=== PATIENT | female | born 1950 | race Caucasian/White ===

== ENCOUNTER → 2016-05-11 | Outpatient (CLI) | payer MEDICARE, OTHER, MEDICAID, SELFPAY | PROVIDERS: Family Provider Family Medicine; PCP Family Medicine; Visit Provider Family Medicine | DX: E11.9 Type 2 diabetes mellitus without complications (principal); E78.2 Mixed hyperlipidemia; I10 Essential (primary) hypertension | CPT/HCPCS: 36415; 83036 ==

== ENCOUNTER → 2019-12-06 08:38 | Outpatient (CLI) | payer MEDICARE, MEDICAID, SELFPAY ==
--- NOTE | 2019-12-06 08:45 | DI.MG.S_ITS ---
BILATERAL DIGITAL DIAGNOSTIC MAMMOGRAM 3D/2D: 12/06/2019 CLINICAL: Left breast pain. Comparison is made to exams dated: 08/09/2011 mammogram, 07/24/2009 mammogram, and 11/08/2005 mammogram - [facility]. There are scattered fibroglandular elements in both breasts. No significant masses, calcifications, or other findings are seen in either breast. Right breast scar. Right breast vascular calcifications. IMPRESSION: INCOMPLETE: NEEDS ADDITIONAL IMAGING EVALUATION No mammographic evidence of malignancy. A targeted ultrasound of the left medial breast at the site of pain is recommended. This exam was interpreted at Station ID: [id number]. NOTE: For mammograms, a report in lay terms will be sent to the patient. Approximately 15% of breast malignancies will not be visualized mammographically. In the management of a palpable breast mass, a negative mammogram must not discourage biopsy of a clinically suspicious lesion. Electronically Signed By: Anderson Hall M.D. slc/:12/06/2019 10:38:15 ACR BI-RADS Category 0: Incomplete [id number]
--- NOTE | 2019-12-06 08:45 | DI.US.S_ITS ---
LIMITED ULTRASOUND OF LEFT BREAST: 12/06/2019 CLINICAL: Focal left breast pain now resolved. Comparison is made to exams dated: 12/06/2019 mammogram, 08/09/2011 mammogram, 07/24/2009 mammogram, and 11/08/2005 mammogram - [facility]. Color flow and real-time ultrasound of the left breast inner aspect were performed. Bennett scale images of the real-time examination were reviewed. No significant abnormalities were seen sonographically in the left breast in the region of pain. IMPRESSION: NEGATIVE There is no sonographic evidence of malignancy in the region of pain. A 1 year screening mammogram is recommended. This exam was interpreted at Station ID: [id number]. Electronically Signed By: Anderson Hall M.D. slc/:12/06/2019 10:49:07 letter sent: Normal Exam Ultrasound BI-RADS: 1 Negative
== END ==
PROVIDERS: Family Provider Family Medicine; PCP Family Medicine; Referring Provider Family Medicine; Visit Provider Registered Nurse
DX: R92.8 Other abnormal and inconclusive findings on diagnostic imaging of breast (principal); N64.4 Mastodynia
CPT/HCPCS: 76642; 77066; G0279

== ENCOUNTER → 2020-09-28 08:41 | Outpatient (CLI) | payer MEDICARE, MEDICAID, SELFPAY ==
--- NOTE | 2020-09-28 | DI.MG.S_ITS ---
BILATERAL DIGITAL DIAGNOSTIC MAMMOGRAM 3D/2D: 09/28/2020 CLINICAL: Right breast pain. Comparison is made to exams dated: 12/06/2019 mammogram, 08/09/2011 mammogram, and 07/24/2009 mammogram - [facility]. There are scattered fibroglandular elements in both breasts. No significant masses, calcifications, or other findings are seen in either breast. Specifically, no finding to explain the patient's pain or tender 1:00 palpable abnormality. Mammograms are otherwise stable. IMPRESSION: INCOMPLETE: NEEDS ADDITIONAL IMAGING EVALUATION There is no abnormality seen in the right breast to correspond with the mass and tenderness at 1 o'clock. There is no abnormality seen in the right breast to correspond with the pain and tenderness in the upper outer quadrant. Ultrasound is recommended for full evaluation of these areas. This was performed immediately following this exam. This exam was interpreted at Station ID: [id number]. NOTE: For mammograms, a report in lay terms will be sent to the patient. Approximately 15% of breast malignancies will not be visualized mammographically. In the management of a palpable breast mass, a negative mammogram must not discourage biopsy of a clinically suspicious lesion. Electronically Signed By: Josie espinoza/:09/28/2020 10:05:37 ACR BI-RADS Category 0: Incomplete [id number]
--- NOTE | 2020-09-28 08:42 | DI.US.S_ITS ---
LIMITED ULTRASOUND OF RIGHT BREAST: 09/28/2020 CLINICAL: Right breast pain. Comparison is made to exams dated: 09/28/2020 mammogram, 12/06/2019 mammogram, 08/09/2011 mammogram, 08/09/2011 mammogram, and 07/24/2009 mammogram - [facility]. Real-time ultrasound of the right breast upper outer quadrant was performed. Bennett scale images of the real-time examination were reviewed. No significant abnormalities were seen sonographically in the right breast. Specifically, no finding to explain the patient's nipple or upper outer quadrant pain. No sonographic mass in the area of palpable abnormality at 1:00. IMPRESSION: NEGATIVE There is no sonographic evidence of malignancy. No findings to explain patient's clinical symptoms. Return to annual mammogram screening schedule is recommended. Findings and recommendations were conveyed to the patient at time of exam. This exam was interpreted at Station ID: [id number]. Electronically Signed By: Josie espinoza/:09/28/2020 10:32:54 letter sent: Normal Exam Ultrasound BI-RADS: 1 Negative
== END ==
PROVIDERS: Family Provider Family Medicine; PCP Family Medicine; Referring Provider Registered Nurse Diabetes Educator; Visit Provider Registered Nurse Diabetes Educator
DX: N64.4 Mastodynia (principal); R92.8 Other abnormal and inconclusive findings on diagnostic imaging of breast
CPT/HCPCS: 76642; 77066; G0279

== ENCOUNTER → 2022-01-20 14:26 | Outpatient (ROUT) | payer MEDICARE, MEDICAID, SELFPAY ==
[2022-01-21 15:36] LABS: Candida species Positive (Negative); Gardnerella vaginalis Positive (Negative); Trichomoas vaginalis Negative (Negative)
== END ==
PROVIDERS: Family Provider Family Medicine; PCP Family Medicine; Visit Provider Physician Assistant Medical
DX: N76.0 Acute vaginitis (principal)
CPT/HCPCS: 87480; 87510; 87660

== ENCOUNTER → 2022-04-05 11:01 | Outpatient (CLI) | payer MEDICARE, MEDICAID, SELFPAY ==
[2022-04-05 11:54] LABS: Hemoglobin A1C% w Est Avg Glu 12.4 % (4.0-6.0)
[2022-04-05 12:05] LABS: Alanine Aminotransferase 26 IU/L (<35); Albumin 4.2 g/dL (3.5-5.0); Albumin Globulin Ratio 1.1 (1.0-2.8); Alkaline Phosphatase 141 U/L (38-126); Aspartate Aminotransferase 24 IU/L (14-36); BUN Creatinine Ratio 22.2 (6-22); Bilirubin Total 0.6 mg/dL (0.2-1.3); Blood Urea Nitrogen 16 mg/dL (7-17); Carbon Dioxide 23 mmol/L (22-32); Chloride 102 mmol/L (98-107); Cholesterol 275 mg/dL (140-199); Estimated Glomerular Filt Rate > 60 mL/min (>60); Globulin 3.7 g/dL (1.7-4.1); Glucose 307 mg/dL (80-110); HDL Cholesterol 51 mg/dL (40-60); HEMOLYSIS 26 (0-50); LDL Cholesterol Calculated 198 mg/dL (<100); Sodium 137 mmol/L (137-145); Total Protein 7.9 g/dL (6.3-8.2); Triglycerides 132 mg/dL (35-150)
== END ==
PROVIDERS: Family Provider Family Medicine; PCP Family Medicine; Referring Provider Family Medicine; Visit Provider Family Medicine
DX: E11.9 Type 2 diabetes mellitus without complications (principal)
CPT/HCPCS: 36415; 80053; 80061; 83036

== ENCOUNTER → 2022-08-16 14:16 | Outpatient (CLI) | payer MEDICARE, MEDICAID, SELFPAY ==
--- NOTE | 2022-08-16 14:19 | DI.RAD.S_ITS ---
PROCEDURE: XR LUMBAR SPINE 2-3V INDICATIONS: Low back pain TECHNIQUE: 3 views of the lumbar spine were acquired. COMPARISON: None. FINDINGS: Bones: 5 [id number] vertebrae are present. There is normal bony alignment. No vertebral body compression fractures. No suspicious bony lesions. Mild degenerative disc changes noted throughout the lumbar spine. Mild L3-L4, L4-L5 and L5-S1 facet hypertrophy. Soft tissues: Overlying bowel gas pattern is normal. No suspicious soft tissue calcifications. IMPRESSION: 1. Multilevel degenerative disc disease. 2. Multilevel facet arthropathy. 3. No fracture. No acute osseous lesion. If symptoms and/or clinical suspicion for pathology persists, evaluation with MRI should be considered for further assessment. Dictated by: Radha Young MD, PhD on 08/16/2022 at 15:28 Approved by: Radha Young MD, PhD on 08/16/2022 at 15:28
[2022-08-16 15:32] LABS: Alanine Aminotransferase 28 IU/L (<35); Albumin 4.2 g/dL (3.5-5.0); Albumin Globulin Ratio 1.2 (1.0-2.8); Alkaline Phosphatase 126 U/L (38-126); Aspartate Aminotransferase 23 IU/L (14-36); Bilirubin Total 0.6 mg/dL (0.2-1.3); Blood Urea Nitrogen 21 mg/dL (7-17); Calcium 9.2 mg/dL (8.4-10.2); Carbon Dioxide 28 mmol/L (22-32); Chloride 99 mmol/L (98-107); Cholesterol 253 mg/dL (140-199); Estimated Glomerular Filt Rate > 60 mL/min (>60); Globulin 3.4 g/dL (1.7-4.1); Glucose 417 mg/dL (80-110); HDL Cholesterol 49 mg/dL (40-60); HEMOLYSIS 28 (0-50); LDL Cholesterol Calculated 152 mg/dL (<100); Potassium 4.4 mmol/L (3.4-5.1); Sodium 133 mmol/L (137-145); Total Protein 7.6 g/dL (6.3-8.2); Triglycerides 260 mg/dL (35-150)
[2022-08-16 15:58] LABS: Creatinine Urine Random 45.6 mg/dL
[2022-08-16 16:04] LABS: Microalbumin Urine Random < 0.6 mg/dL (0-1.6)
[2022-08-17 07:36] LABS: x Labcorp Estim. Avg Glu (eAG) 289 mg/dL (.); x Labcorp Hemoglobin A1c 11.7 % (4.8-5.6)
== END ==
PROVIDERS: Family Provider Family Medicine; PCP Family Medicine; Referring Provider Family Medicine; Visit Provider Family Medicine
DX: E11.9 Type 2 diabetes mellitus without complications (principal); E78.00 Pure hypercholesterolemia, unspecified; I10 Essential (primary) hypertension; M51.36 Other intervertebral disc degeneration, lumbar region; M47.816 Spondylosis without myelopathy or radiculopathy, lumbar region
CPT/HCPCS: 36415; 72100; 80053; 80061; 82043; 82570; 83036

== ENCOUNTER 2022-08-30 16:26 | Emergency (ER) | payer MEDICARE, MEDICAID, SELFPAY ==
[2022-08-30 16:41] VITALS: BP 175/76; PULSE 88; RESP 17; TEMP 36.6; O2SAT 95; BMI 24.4
--- NOTE | 2022-08-30 19:02 | ED_ITS ---
HPI - Back Pain/Injury <Cindy Lovell PA-C - Last Filed: 08/30/22 20:51> General Chief Complaint: Back Pain/Injury Stated Complaint: sciatic nerve pain increasing Time Seen by Provider: 08/30/22 18:52 History of Present Illness HPI Narrative: 72-year-old female with past medical history chronic lower back pain, hypercholesterolemia, type 2 diabetes, essential hypertension presents to the ED with worsening lower back pain with sciatica. Patient has been seen by ortho for ongoing lower back pain with sciatica, is scheduled to have a MRI soon. Meanwhile, patient states that her lower back pain worsened as of this morning, denies any new trauma or activities that provoked it. Patient states that she is having a hard time standing straight, bearing weight and walking, moving positions. Patient denies numbness, tingling, weakness, saddle paresthesia, urinary hesitancy, urinary incontinence, bowel incontinence. Related Data Previous Rx's Medication Instructions Recorded lancets 33 gauge (BD Ultra Fine #100 ea 09/02/19 Lancets) epinephrine 0.3 mg/0.3 mL 0.3 mg (0.3 mL) IM Q5-15M PRN 12/03/20 injection, auto-injector (EpiPen anaphylaxis #2 ea 2-Jaspreet) Parking Permit... #1 ea 03/22/22 cyclobenzaprine 5 mg tablet 5 mg PO Q8H PRN muscle spasm #30 03/22/22 tabs naproxen 500 mg tablet 500 mg PO BID PRN pain #60 tabs 03/22/22 lisinopril 20 mg tablet 20 mg PO DAILY #90 tabs 04/05/22 metformin 500 mg tablet 1,000 mg PO BIDWMEAL #360 tabs 04/05/22 atorvastatin 80 mg tablet (Lipitor) 80 mg PO BEDTIME #90 tabs 04/06/22 gabapentin 100 mg capsule See Rx Instructions .Route 04/21/22 .COMPLEX #180 caps blood sugar diagnostic (Accu-Chek ##100 05/04/22 Makeda Plus test strips) blood-glucose meter #1 ea 05/17/22 fluconazole 150 mg tablet 150 mg PO Q3D 2 doses #5 tabs 05/25/22 (Diflucan) nystatin-triamcinolone 100,000 1 applic topical BID #30 grams 02/01/23 unit/gram-0.1 % topical ointment empagliflozin 25 mg tablet 25 mg PO DAILY #90 tabs 08/16/22 (Jardiance) pioglitazone 15 mg tablet 15 mg PO DAILY #90 tabs 08/16/22 methylprednisolone 4 mg tablets in 4 mg PO DAILY #21 ea 08/31/22 a dose pack (Medrol (Jaspreet)) cefdinir 300 mg capsule 300 mg PO BID UTI 5 days #10 caps 09/01/22 lidocaine 5 % topical patch 1 patch topical DAILY PRN pain 15 09/01/22 days #15 ea Allergies Allergy/AdvReac Type Severity Reaction Status Date / Time bee venom protein (honey bee) Allergy Severe SOB and Verified 08/30/22 16:45 swelling codeine [CODEINE] Allergy Intermediate NAUSEA Verified 08/30/22 16:45 Sulfa (Sulfonamide Allergy Unknown PATIENT Verified 08/30/22 16:45 Antibiotics) CAN'T [SULFA (SULFONAMIDE REMEMBER ANTIBIOTICS)] Review of Systems <Cindy Lovell PA-C - Last Filed: 08/30/22 20:51> Review of Systems ROS Unobtainable: All systems reviewed & are unremarkable except as noted in HPI and below Constitutional Constitutional: Denies chills, Denies fatigue, Denies fever(s), Denies frequent falls, Denies lethargy and Denies weakness Eyes Eyes: Denies change in vision, Denies eye discharge, Denies irritation and Denies loss of vision ENT Ears, Nose, Mouth, and Throat: Denies change in voice, Denies dizziness, Denies neck pain, Denies sore throat and Denies throat swelling Cardiovascular Cardiovascular: Denies chest pain, Denies irregular heart rhythm, Denies lightheadedness, Denies palpitations, Denies dyspnea, Denies dyspnea on exertion and Denies orthopnea Respiratory Respiratory: Denies cough, Denies dyspnea, Denies dyspnea on exertion and Denies wheezing Gastrointestinal Gastrointestinal: Denies abdominal pain, Denies change in bowel habits, Denies diarrhea, Denies nausea and Denies vomiting Genitourinary Genitourinary: Denies hematuria, Denies flank pain, Denies urinary incontinence and Denies urinary urgency Musculoskeletal Musculoskeletal: Reports back pain, Denies muscle weakness, Denies neck pain, Denies numbness, Reports radiating pain into limb and Denies tingling Integumentary/Breasts Skin/Breast: Denies pruritus, Denies erythema, Denies rash and Denies wounds Neurologic Neurologic: Denies behavioral changes, Denies confusion, Denies dizziness, Denies frequent falls, Denies loss of vision, Denies numbness, Denies tingling and Denies weakness Psychiatric Psychiatric: Denies anxiety, Denies behavioral changes, Denies confusion, Denies depression, Denies homicidal ideation and Denies suicidal ideation Endocrine Endocrine: Denies fatigue, Denies flushing and Denies palpitations Hematologic/Lymphatic Hematologic/Lymphatic: Denies easy bruising Allergic/Immunologic Allergic/Immunologic: Denies urticaria, Denies throat swelling and Denies wheezing Patient History <Cindy Lovell PA-C - Last Filed: 08/30/22 20:51> Medical History Actinic keratosis Breast cancer screening Breast pain, left Chronic lower back pain Essential hypertension Hypercholesterolemia MCL sprain of right knee Seborrheic keratoses Skin tags, multiple acquired Type 2 diabetes mellitus Social History Smoking Status: Former smoker Smoking Status: Former smoker alcohol intake frequency: other Substance Use Type: marijuana Exam <Cindy Lovell PA-C - Last Filed: 08/30/22 20:51> Narrative Exam Narrative: Const General:?cooperative, healthy appearing and comfortable [facility] Head:?normal to inspection Ears:?hearing grossly normal bilaterally Nose:?external nose normal Face and sinus:?normal facial exam and sinuses nontender Mouth:?oral mucosae normal Throat:?posterior oropharynx normal Eyes General:?appearance normal, both eyes and all related structures Neck Neck:?normal visual inspection and no lymphadenopathy noted Resp Effort & Inspection:?normal respiratory effort Auscultation:?clear to auscultation bilaterally Cardio Rate:?regular rate Rhythm:?regular rhythm Musculoskeletal There is no midline tenderness to palpation. No paraspinal tenderness to palpation. Strength and sensation is intact. Range of motion severely limited by pain. Neuro General:?patient alert, patient awake and patient oriented x3 Initial Vital Signs Initial Vital Signs: Vital Signs Temperature 98 F 08/30/22 16:41 Pulse Rate 88 08/30/22 16:41 Respiratory Rate 17 08/30/22 16:41 Blood Pressure 175/76 H 08/30/22 16:41 Pulse Oximetry 95 08/30/22 16:41 Oxygen Delivery Method Room Air 08/30/22 16:41 <Susie Nino DO - Last Filed: 09/02/22 05:46> Initial Vital Signs Initial Vital Signs: Vital Signs Temperature 98 F 08/30/22 16:41 Pulse Rate 88 08/30/22 16:41 Respiratory Rate 17 08/30/22 16:41 Blood Pressure 175/76 H 08/30/22 16:41 Pulse Oximetry 95 08/30/22 16:41 Oxygen Delivery Method Room Air 08/30/22 16:41 Course <Cindy Lovell PA-C - Last Filed: 08/30/22 20:51> Orders Ordered: Discontinued Medications Cyclobenzaprine HCl (Cyclobenzaprine 10 Mg Tablet) 10 mg PO NOW ONE Stop: 08/30/22 19:12 Last Admin: 08/30/22 19:28 Dose: 10 mg Documented By: SPF Ketorolac Tromethamine (Ketorolac 30 Mg/Ml Vial) 30 mg IM NOW ONE Stop: 08/30/22 19:12 Last Admin: 08/30/22 19:29 Dose: 30 mg Documented By: SPF Lidocaine (Lidocaine Patch 1 Each Adh..Patch) 1 each TOP NOW ONE Stop: 08/30/22 19:12 Last Admin: 08/30/22 19:29 Dose: 1 each Documented By: SPF Morphine Sulfate (Morphine 4 Mg/Ml Inj) 4 mg IM NOW ONE Stop: 08/30/22 20:06 Last Admin: 08/30/22 20:19 Dose: 4 mg Documented By: SPF Vital Signs Vital signs: Vital Signs - 8 hr 08/30/22 16:41 Temperature 98 F Pulse Rate 88 Respiratory Rate 17 Blood Pressure 175/76 H Pulse Oximetry 95 Oxygen Delivery Method Room Air <Susie Nino DO - Last Filed: 09/02/22 05:46> Orders Ordered: Discontinued Medications Cyclobenzaprine HCl (Cyclobenzaprine 10 Mg Tablet) 10 mg PO NOW ONE Stop: 08/30/22 19:12 Last Admin: 08/30/22 19:28 Dose: 10 mg Documented By: SPF Ketorolac Tromethamine (Ketorolac 30 Mg/Ml Vial) 30 mg IM NOW ONE Stop: 08/30/22 19:12 Last Admin: 08/30/22 19:29 Dose: 30 mg Documented By: MENDEZ Lidocaine (Lidocaine Patch 1 Each Adh..Patch) 1 each TOP NOW ONE Stop: 08/30/22 19:12 Last Admin: 08/30/22 19:29 Dose: 1 each Documented By: MENDEZ Morphine Sulfate (Morphine 4 Mg/Ml Inj) 4 mg IM NOW ONE Stop: 08/30/22 20:06 Last Admin: 08/30/22 20:19 Dose: 4 mg Documented By: MENDEZ Vital Signs Vital signs: Vital Signs - 8 hr 08/30/22 16:41 Temperature 98 F Pulse Rate 88 Respiratory Rate 17 Blood Pressure 175/76 H Pulse Oximetry 95 Oxygen Delivery Method Room Air MDM - Back Pain/Injury <Cindy Lovell PA-C - Last Filed: 08/30/22 20:51> MDM Narrative Medical decision making narrative: 72-year-old female with past medical history chronic lower back pain, hypercholesterolemia, type 2 diabetes, essential hypertension presents to the ED with worsening lower back pain with sciatica. Physical exam is consistent with sciatica. Strength and sensation is intact. No red flags on history or exam. Will treat patient for pain control. Will reassess. Patient's symptoms improved with lidocaine patch, Toradol, Flexeril, morphine. Patient's blood pressure was elevated during her ED stay. Patient states that she has not taken her medications today, agrees to go home and take her medications as prescribed. ED return precautions were discussed including any headaches, chest pain, shortness of breath, worsening back pain, numbness, tingling, weakness, urinary difficulties. Patient will follow-up with her exterior interior specialist and PCP tomorrow. Medical records reviewed: Yes Discharge Plan Departure Patient Disposition: Home Clinical Impression: Back pain Instructions: DI for Back Pain With Sciatica Activity Restrictions/Additional Instructions: You were evaluated in the ED today for lower back pain and sciatica. Your symptoms improved somewhat with a lidocaine patch, ketorolac, morphine. You are being given a prescription for Percocet for the next 3 days. Please follow-up with your primary care doctor and ortho specialist as soon as possible. Return to the ED if you experience any numbness, tingling, weakness, urinary difficulties. Prescriptions: No Action epinephrine [EpiPen 2-Jaspreet] 0.3 mg/0.3 mL auto-injector 0.3 mg IM Q5-15M PRN (Reason: anaphylaxis) Qty: 2 0RF Rx Instructions: do not exceed 3 doses per episode atorvastatin [Lipitor] 80 mg tablet 80 mg PO BEDTIME Qty: 90 3RF gabapentin 100 mg capsule See Rx Instructions .ROUTE .COMPLEX Qty: 180 3RF Dose Instruction: TAKE ONE TO TWO CAPSULES BY MOUTH EVERY 8 HOURS NEEDED FOR NERVE PAIN Rx Instructions: TAKE ONE TO TWO CAPSULES BY MOUTH EVERY 8 HOURS NEEDED FOR NERVE PAIN (DME) Accu-Chek Makeda Plus test strp Strip See Rx Instructions .ROUTE .COMPLEX Qty: 100 2RF Dose Instruction: FOR DIABETES TYPE 2; USE TO TEST BLOOD GLUCOSE TWICE DAILY. Rx Instructions: FOR DIABETES TYPE 2; USE TO TEST BLOOD GLUCOSE TWICE DAILY. (DME) blood-glucose meter Kit See Rx Instructions .ROUTE .MEDSUPPLY Qty: 1 0RF Rx Instructions: Use to check blood sugars twice daily- Accu Check Meter metformin 500 mg tablet 1,000 mg PO BIDWMEAL Qty: 360 3RF lisinopril 20 mg tablet 20 mg PO DAILY Qty: 90 3RF Jardiance 25 mg tablet 25 mg PO DAILY Qty: 90 3RF pioglitazone 15 mg tablet 15 mg PO DAILY Qty: 90 3RF (DME) lancets [BD Ultra Fine Lancets] 33 gauge misc See Rx Instructions .ROUTE .MEDSUPPLY Qty: 100 1RF Rx Instructions: USE TO TEST BLOOD GLUCOSE TWICE DAILY naproxen 500 mg tablet 500 mg PO BID PRN (Reason: pain) Qty: 60 2RF cyclobenzaprine 5 mg tablet 5 mg PO Q8H PRN (Reason: muscle spasm) Qty: 30 2RF (DME) Parking Permit... See Rx Instructions .Route .MEDSUPPLY Qty: 1 0RF Rx Instructions: Parking permit for difficulty walking fluconazole [Diflucan] 150 mg tablet 150 mg PO Q3D Qty: 5 0RF Rx Instructions: Take 1 tab today, repeat in 3 days. Repeat in 1 wk, then another week nystatin-triamcinolone 100,000-0.1 unit/gram-% ointment 1 applic topical BID Qty: 30 2RF Rx Instructions: Apply to external genitalia twice a day for 6 weeks methylprednisolone [Medrol (Jaspreet)] 4 mg tablets,dose pack 4 mg PO DAILY Qty: 21 0RF cefdinir 300 mg capsule 300 mg PO BID 5 Days Qty: 10 0RF lidocaine 5 % adhesive patch,medicated 1 patch topical DAILY PRN (Reason: pain) 15 Days Qty: 15 0RF Rx Instructions: leave on most painful area for up to 12 hrs Referrals: Pawan Floyd DO [Primary Care Provider] - Stand Alone Forms: Patient Portal/API <Susie Nino DO - Last Filed: 09/02/22 05:46> Cosign ED Attending Cosignature Attestation: I was immediately available in the department for consultation. Documentation has been reviewed.
[2022-08-30] MEDS: CYCLOBENZAPRINE 10 MG TABLET PO (19:28)
[2022-08-30] MEDS: LIDOCAINE PATCH 1 EACH ADH..PATCH TOP (19:29)
[2022-08-30] MEDS: KETOROLAC 30 MG/ML VIAL IM (19:29)
[2022-08-30] MEDS: MORPHINE 4 MG/ML INJ IM (20:19)
[2022-08-30 20:54] VITALS: BP 210/95; PULSE 75; RESP 16; O2SAT 99
== END 2022-08-30 20:58 | disposition home or self-care (01) ==
PROVIDERS: Emergency Provider Student in an Organized Health Care Education/Training Program; Family Provider Family Medicine; PCP Family Medicine
DX: M54.50 Low back pain, unspecified (principal)
CPT/HCPCS: 96372; 99283; J1885; J2270

== ENCOUNTER 2022-08-31 11:11 | Emergency (ER) | payer MEDICARE, MEDICAID, SELFPAY ==
[2022-08-31 11:15] VITALS: BP 155/82; PULSE 77; O2SAT 99
[2022-08-31 11:16] VITALS: BP 155/82; PULSE 76; RESP 18; TEMP 36.9; O2SAT 100; BMI 24.4
[2022-08-31 11:30] VITALS: PULSE 72; O2SAT 95
[2022-08-31 12:00] VITALS: PULSE 78; O2SAT 97
--- NOTE | 2022-08-31 12:24 | ED_ITS ---
HPI - Back Pain/Injury <Kel Lowe PA-C - Last Filed: 08/31/22 14:59> General Chief Complaint: Back Pain/Injury Stated Complaint: L Sciatica pain Time Seen by Provider: 08/31/22 12:03 Source: patient and EMS History of Present Illness HPI Narrative: This is a 72 year old female presents emergency department due to worsening sciatic pain. Patient denies any changes in her she states that the pain is worse than yesterday. Patient states she is having left-sided back pain radiating down the left lower extremity. 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 She would not taken any medications for the pain risks tried any therapies because ?it was so busy?. Denies any urinary or bowel incontinence, saddle paresthesia, significant weakness, or any other concerning signs or symptoms. Related Data Home Medications Medication Instructions Recorded Confirmed empagliflozin 25 mg tablet 25 mg PO DAILY 09/05/22 09/05/22 (Jardiance) lisinopril 20 mg tablet 20 mg PO DAILY 09/05/22 09/05/22 Previous Rx's Medication Instructions Recorded lancets 33 gauge (BD Ultra Fine #100 ea 09/02/19 Lancets) Parking Permit... #1 ea 03/22/22 metformin 500 mg tablet 1,000 mg PO BIDWMEAL #360 tabs 04/05/22 blood sugar diagnostic (Accu-Chek ##100 05/04/22 Makeda Plus test strips) blood-glucose meter #1 ea 05/17/22 Allergies Allergy/AdvReac Type Severity Reaction Status Date / Time bee venom protein (honey bee) Allergy Severe SOB and Verified 09/05/22 11:09 swelling codeine [CODEINE] Allergy Intermediate NAUSEA Verified 09/05/22 11:09 Sulfa (Sulfonamide Allergy Unknown PATIENT Verified 09/05/22 11:09 Antibiotics) CAN'T [SULFA (SULFONAMIDE REMEMBER ANTIBIOTICS)] Review of Systems <Kel Lowe PA-C - Last Filed: 08/31/22 14:59> Review of Systems Narrative: GENERAL: Denies chills, fatigue, malaise, fever, sweats. HEENT: Denies sinus pain, ear pain, sore throat, difficulty swallowing, dizziness. RESPIRATORY: Denies dyspnea, cough, wheezing, hemoptysis, sputum. CARDIOVASCULAR: Denies chest pain, palpitations, orthopnea, edema, GASTROINTESTINAL: Denies nausea, vomiting, abdominal pain, diarrhea, constipation, melena. : Denies dysuria, frequency, incontinence, hematuria, urinary retention. MUSCULOSKELETAL: Left back and left lower extremity pain, otherwise denies weakness, joint pain, or bony pain SKIN: Denies rash, skin lesions, or other NEUROLOGIC: Denies weakness, headache, numbness, change in speech, confusion, seizures, incoordination. PSYCHIATRIC: No concerning psychosocial issues. 12 point review of systems is negative except for those stated above Patient History <Kel Lowe PA-C - Last Filed: 08/31/22 14:59> Medical History Actinic keratosis Breast cancer screening Breast pain, left Chronic lower back pain Essential hypertension Hypercholesterolemia MCL sprain of right knee Seborrheic keratoses Skin tags, multiple acquired Type 2 diabetes mellitus Social History household members: significant other Smoking Status: Former smoker Smoking Status: Former smoker alcohol intake frequency: other Substance Use Type: marijuana Exam <Kel Lowe PA-C - Last Filed: 08/31/22 14:59> Narrative Exam Narrative: GENERAL: Well-developed patient, in mild distress. HEAD: Atraumatic. Normocephalic. EYES: Pupils equal round and reactive. Extraocular motions intact. No scleral icterus. No injection or drainage. ENT: Nose without bleeding, purulent drainage. Throat without erythema, tonsillar hypertrophy or exudate. Airway patent. NECK: Trachea midline. Non tender CARDIOVASCULAR: Regular rate and rhythm without murmurs, gallops, or rubs. RESPIRATORY: Clear to auscultation. Breath sounds equal bilaterally. No wheezes, rales, or rhonchi. GASTROINTESTINAL: Abdomen soft, non-tender, nondistended. EXTREMITIES: No edema or joint tenderness. BACK: Tenderness to palpation to the left paraspinal lumbar area, NEURO: AOx3. SKIN: No rash or erythema of visible areas Initial Vital Signs Initial Vital Signs: Vital Signs Pulse Rate 77 08/31/22 11:15 Blood Pressure 155/82 H 08/31/22 11:15 Pulse Oximetry 99 08/31/22 11:15 Oxygen Delivery Method Room Air 08/31/22 11:15 <Herman Fierro MD - Last Filed: 09/08/22 03:18> Initial Vital Signs Initial Vital Signs: Vital Signs Pulse Rate 77 08/31/22 11:15 Blood Pressure 155/82 H 08/31/22 11:15 Pulse Oximetry 99 08/31/22 11:15 Oxygen Delivery Method Room Air 08/31/22 11:15 Course <Kel Lowe PA-C - Last Filed: 08/31/22 14:59> Orders Ordered: Discontinued Medications Acetaminophen (Acetaminophen 325 Mg Tablet) 650 mg PO NOW ONE Stop: 08/31/22 12:34 Last Admin: 08/31/22 13:00 Dose: 650 mg Documented By: RADHA Cyclobenzaprine HCl (Cyclobenzaprine 10 Mg Tablet) 10 mg PO NOW ONE Stop: 08/31/22 12:34 Last Admin: 08/31/22 13:00 Dose: 10 mg Documented By: RADHA Vital Signs Vital signs: Vital Signs - 8 hr 08/31/22 11:16 08/31/22 11:15 08/31/22 11:15 Temperature 98.5 F Pulse Rate 76 77 Respiratory Rate 18 Blood Pressure 155/82 H 155/82 H Pulse Oximetry 100 99 Oxygen Delivery Method Room Air Room Air 08/31/22 11:30 08/31/22 12:00 08/31/22 12:30 Temperature Pulse Rate 72 78 81 Respiratory Rate Blood Pressure Pulse Oximetry 95 97 98 Oxygen Delivery Method <Herman Fierro MD - Last Filed: 09/08/22 03:18> Orders Ordered: Discontinued Medications Acetaminophen (Acetaminophen 325 Mg Tablet) 650 mg PO NOW ONE Stop: 08/31/22 12:34 Last Admin: 08/31/22 13:00 Dose: 650 mg Documented By: RADHA Cyclobenzaprine HCl (Cyclobenzaprine 10 Mg Tablet) 10 mg PO NOW ONE Stop: 08/31/22 12:34 Last Admin: 08/31/22 13:00 Dose: 10 mg Documented By: RADHA Vital Signs Vital signs: Vital Signs - 8 hr 08/31/22 11:16 08/31/22 11:15 08/31/22 11:15 Temperature 98.5 F Pulse Rate 76 77 Respiratory Rate 18 Blood Pressure 155/82 H 155/82 H Pulse Oximetry 100 99 Oxygen Delivery Method Room Air Room Air 08/31/22 11:30 08/31/22 12:00 08/31/22 12:30 Temperature Pulse Rate 72 78 81 Respiratory Rate Blood Pressure Pulse Oximetry 95 97 98 Oxygen Delivery Method MDM - Back Pain/Injury <Kel Lowe PA-C - Last Filed: 08/31/22 14:59> Lab Data Labs: Urine Dip Bedside Urine Glucose 1000 mg/dl Bedside Urine Bilirubin - Negative Bedside Urine Ketone + 15 Urine Specific [place] 1.025 Bedside Urine Occult Blood +/- Bedside Urine pH 5.5 Bedside Urine Protein - Negative Bedside Urine Urobilinogen - Negative Bedside Urine Nitrite - Negative Bedside Urine Leukocytes - Negative Esterase MDM Narrative Medical decision making narrative: MDM * differential diagnosis includes but not limited to sciatica, muscular strain, sprain, fracture, spinal cord injury * Prior records reviewed: Patient was seen here yesterday due to sciatic nerve pain. Medical history of chronic lower back pain, hyperlipidemia, type 2 diabetes, essential hypertension. Scheduled to have a MRI soon. States that the back pain is worsening. No new traumas or activities. Difficulty with ambulation secondary to the pain. Denied any numbness, tingling, weakness, saddle paresthesia, urinary hesitancy incontinence or bowel incontinence. Patient was treated with lidocaine patch, Toradol, Flexeril, morphine. Blood pressure was noted to be elevated at 175/76. Yesterday patient stated that she is not been taking her medications as prescribed. Recommended she follow up with orthopedist and primary care provider. * My lab interpretation: None obtained * My imgaing interpretation: None obtained * Clinical Decision Rules/Scores evaluated: None * Independent discussions with: None ED Course: This is a 72-year-old female presents to the emergency department due to suspected sciatic pain. She would not have any saddle paresthesia, weakness, urinary bowel incontinence, or any other concerning new signs or symptoms. 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 Patient just got Toradol yesterday and will not use Toradol today. She was given Tylenol in a lot muscle relaxant here today in the emergency department. Discharged with instructions to take the medications prescribed as prescribed. She is already seen orthopedist who has ordered an MRI in his falling a helping managed the patient's pain. Shared Decision Making: Discussed plan with the patient who is comfortable with the plan. Social Considerations: None Disposition: Discharged to home <Herman Fierro MD - Last Filed: 09/08/22 03:18> Lab Data Labs: Urine Dip Bedside Urine Glucose 1000 mg/dl Bedside Urine Bilirubin - Negative Bedside Urine Ketone + 15 Urine Specific [place] 1.025 Bedside Urine Occult Blood +/- Bedside Urine pH 5.5 Bedside Urine Protein - Negative Bedside Urine Urobilinogen - Negative Bedside Urine Nitrite - Negative Bedside Urine Leukocytes - Negative Esterase Discharge Plan Departure Patient Disposition: Home Clinical Impression: Sciatica Instructions: DI for Back Pain With Sciatica Activity Restrictions/Additional Instructions: Thank you for coming to the [facility] Emergency Department today. I recommend you begin taking medications that was prescribed yesterday. I also recommended follow up with your orthopedist for long-term management of your symptoms. Please take the medication as prescribed. I sent the medication to [facility] in [place]. I hope you feel better soon. Prescriptions: No Action (DME) Accu-Chek Makeda Plus test strp Strip See Rx Instructions .ROUTE .COMPLEX Qty: 100 2RF Dose Instruction: FOR DIABETES TYPE 2; USE TO TEST BLOOD GLUCOSE TWICE DAILY. Rx Instructions: FOR DIABETES TYPE 2; USE TO TEST BLOOD GLUCOSE TWICE DAILY. (DME) blood-glucose meter Kit See Rx Instructions .ROUTE .MEDSUPPLY Qty: 1 0RF Rx Instructions: Use to check blood sugars twice daily- Accu Check Meter metformin 500 mg tablet 1,000 mg PO BIDWMEAL Qty: 360 3RF (DME) lancets [BD Ultra Fine Lancets] 33 gauge misc See Rx Instructions .ROUTE .MEDSUPPLY Qty: 100 1RF Rx Instructions: USE TO TEST BLOOD GLUCOSE TWICE DAILY (DME) Parking Permit... See Rx Instructions .Route .MEDSUPPLY Qty: 1 0RF Rx Instructions: Parking permit for difficulty walking lisinopril 20 mg tablet 20 mg PO DAILY Patient Comments: TAKE ONE TABLET BY MOUTH ONE TIME DAILY Jardiance 25 mg tablet 25 mg PO DAILY Patient Comments: TAKE ONE TABLET BY MOUTH ONE TIME DAILY Referrals: Pawan Floyd, DO [Primary Care Provider] - Stand Alone Forms: Patient Portal/API <Herman Fierro MD - Last Filed: 09/08/22 03:18> Cosign ED Attending Cosignature Attestation: I was immediately available in the department for consultation. ?This documentation has been reviewed and I agree with assessment and plan. Supervised by Herman Fierro MD
[2022-08-31 12:30] VITALS: PULSE 81; O2SAT 98
[2022-08-31] MEDS: CYCLOBENZAPRINE 10 MG TABLET PO (13:00)
[2022-08-31] MEDS: ACETAMINOPHEN 325 MG TABLET 650 MG PO (13:00)
--- NOTE | 2022-08-31 13:10 | PC.NURSE ---
RN and [employer]IDE [employer] assisted pt to edge of bed to help pt get into wheel chair to d/c home. Pt states I cant sit up Pt states it was too painful to sit. PA called to room to re-evalaute pt. Pt education performed to take oral medications as prescribed. PA ok'd pt to safely D/c. RN and [employer] assisted pt to vehicle.
== END 2022-08-31 13:25 | disposition home or self-care (01) ==
PROVIDERS: Emergency Provider Physician Assistant Medical; Family Provider Family Medicine; PCP Family Medicine
DX: M54.32 Sciatica, left side (principal)
CPT/HCPCS: 81003; 99283

== ENCOUNTER 2022-09-01 09:37 | Emergency (ER) | payer MEDICARE, MEDICAID, SELFPAY ==
[2022-09-01] VITALS (9 sets, daily range): BP systolic 124–169; BP diastolic 64–117; PULSE 100–116; RESP 20–22; TEMP 36.8; O2SAT 93–98
--- NOTE | 2022-09-01 10:34 | PC.NURSE ---
pt states this is the third day in a row she is here. she has been taking her home medications with zero relief, she has appt with PCP today but is unable to get out of bed. pt states all the medications we have given her in the last 3 days have not helped at all.
[2022-09-01 11:07] LABS: Appearance Urine UA SL CLOUDY; Bilirubin Urine UA NEGATIVE (NEGATIVE); Color Urine UA YELLOW; Glucose Urine UA 3+ g/dL (Negative); Ketones Urine UA 3+ (NEGATIVE); Leukocyte Esterase Urine UA NEGATIVE (NEGATIVE); Nitrite Urine UA POSITIVE (Negative); Occult Blood Urine UA TRACE-INTACT (Negative); Protein Urine UA 1+ (Negative); Urobilinogen Urine UA 0.2 E.U./dL (0.2)
[2022-09-01 11:44] LABS: Amorphous Sediment Urine 3+; Bacteria Urine Many (>30); RBC Urine 0-1/HPF (0-5/HPF); Squamous Epithelial Cell Urine 0-1 /HPF (0-5/HPF); Transitional Epi Cells Urine 0-1/HPF (0-5/HPF); WBC Urine 5-10/HPF (0-5/HPF)
[2022-09-01 11:45] LABS: Culture Indicated Urine Specimen Cultured
--- NOTE | 2022-09-01 12:07 | ED.BACK ---
HPI - Back Pain/Injury <Pat Ahumada PA-C - Last Filed: 09/01/22 15:29> General Chief Complaint: Back Pain/Injury Stated Complaint: Back Pain Time Seen by Provider: 09/01/22 12:02 Source: patient and EMS History of Present Illness HPI Narrative: 72-year-old female history of sciatica, hypertension, type 2 diabetes and hypercholesterolemia seen both yesterday and the day prior in this emergency department presents today brought in by ambulance from home with concern for persistent and worsening low back pain she believes is her sciatica acting up. Patient states that since she was seen in the emergency department yesterday she has taken the muscle relaxer and steroid medication last dose was this morning. She states that ?nothing is working?. She states that because of the pain she is been having difficulty with ambulation and getting around. Her partner is at home with her and has been helping. She describes the pain as a very intense sharp pain that comes and waves and radiates into her buttock and down the back of her left thigh. She says she does have a history of sciatic problems but has never had pain like this so persistently which has been present for 3 or 4 days now. She states she is scheduled to have an MRI as an outpatient for further evaluation of her back issues. Patient states that her blood sugars are generally well controlled with medication, less than 150. She does endorse frequency of urination but states this is normal for her, she denies fevers, chills, nausea, vomiting, abdominal pain, saddle paresthesia, weakness, numbness or tingling of the extremities or any other symptoms. Related Data Home Medications Medication Instructions Recorded Confirmed empagliflozin 25 mg tablet 25 mg PO DAILY 09/05/22 09/05/22 (Jardiance) lisinopril 20 mg tablet 20 mg PO DAILY 09/05/22 09/05/22 Previous Rx's Medication Instructions Recorded lancets 33 gauge (BD Ultra Fine #100 ea 09/02/19 Lancets) Parking Permit... #1 ea 03/22/22 metformin 500 mg tablet 1,000 mg PO BIDWMEAL #360 tabs 04/05/22 blood sugar diagnostic (Accu-Chek ##100 05/04/22 Makeda Plus test strips) blood-glucose meter #1 ea 05/17/22 Allergies Allergy/AdvReac Type Severity Reaction Status Date / Time bee venom protein (honey bee) Allergy Severe SOB and Verified 09/05/22 11:09 swelling codeine [CODEINE] Allergy Intermediate NAUSEA Verified 09/05/22 11:09 Sulfa (Sulfonamide Allergy Unknown PATIENT Verified 09/05/22 11:09 Antibiotics) CAN'T [SULFA (SULFONAMIDE REMEMBER ANTIBIOTICS)] Review of Systems <Pat Ahumada PA-C - Last Filed: 09/01/22 15:29> Review of Systems Narrative: See HPI Patient History <Pat Ahumada PA-C - Last Filed: 09/01/22 15:29> Medical History Actinic keratosis Breast cancer screening Breast pain, left Chronic lower back pain Essential hypertension Hypercholesterolemia MCL sprain of right knee Seborrheic keratoses Skin tags, multiple acquired Type 2 diabetes mellitus Social History household members: significant other Smoking Status: Former smoker Smoking Status: Former smoker tobacco type: cigarettes alcohol intake frequency: 0-2 drinks per day Substance Use Type: marijuana Exam <Pat Ahumada PA-C - Last Filed: 09/01/22 15:29> Narrative Exam Narrative: GENERAL: 72 year old patient appears stated age. Well-developed patient, in moderate distress, she is uncomfortable appearing and appears to be having difficulty staying still. HEAD: Atraumatic. Normocephalic. EYES: Pupils equal round and reactive. Extraocular motions intact. No scleral icterus. No injection or drainage. ENT: Nose without bleeding, purulent drainage. Airway patent. NECK: Trachea midline. Non tender CARDIOVASCULAR: Regular rate and rhythm without murmurs, gallops, or rubs. RESPIRATORY: Clear to auscultation. Breath sounds equal bilaterally. No wheezes, rales, or rhonchi. GASTROINTESTINAL: Abdomen soft, non-tender, nondistended. EXTREMITIES: Patient is supine during exam, there is normal strength with dorsiflexion plantar flexion of the feet, patient is able to bend her knees and straighten her legs. No edema or joint tenderness. BACK: There is tenderness over the low left flank/paraspinal region and the SI joint. There is no CVA tenderness noted. Otherwise Nontender without deformity or crepitance. No flank tenderness. NEURO: AOx3. SKIN: No rash or erythema of visible areas Initial Vital Signs Initial Vital Signs: Vital Signs Temperature 98.3 F 09/01/22 09:52 Pulse Rate 107 H 09/01/22 09:52 Respiratory Rate 22 09/01/22 09:52 Blood Pressure 169/117 H 09/01/22 09:52 Pulse Oximetry 94 09/01/22 09:52 Oxygen Delivery Method Room Air 09/01/22 09:52 <Herman Fierro MD - Last Filed: 09/08/22 03:31> Initial Vital Signs Initial Vital Signs: Vital Signs Temperature 98.3 F 09/01/22 09:52 Pulse Rate 107 H 09/01/22 09:52 Respiratory Rate 22 09/01/22 09:52 Blood Pressure 169/117 H 09/01/22 09:52 Pulse Oximetry 94 09/01/22 09:52 Oxygen Delivery Method Room Air 09/01/22 09:52 Course <Pat Ahumada PA-C - Last Filed: 09/01/22 15:29> Course Course Narrative: Patient did have some improvement in her discomfort after fluids, the p.o. Ativan and Toradol. Additional small dose of Ativan we will consider additional pain medication she is not driving today. 14:05 did discuss lab findings with Dr Fierro, suspect pt is hemoconcentrated from not hydrating well while being in bed a lot last few days, also UTI may be partially responsible for her white count, other labs do not suggest sepsis. She is persistently mildly tachycardic, though this improved with fluids. 1500 Orders Ordered: Discontinued Medications Sodium Chloride (Normal Saline 0.9%) 500 mls @ 1,000 mls/hr IV BOLUS ONE Stop: 09/01/22 12:38 Last Infusion: 09/01/22 13:44 Dose: 0 mls/hr Documented By: Admin: 09/01/22 12:45 Dose: 1,000 mls/hr Documented By: BHARATH Sodium Chloride (Normal Saline 0.9%) 500 mls @ 1,000 mls/hr IV BOLUS ONE Stop: 09/01/22 14:01 Last Infusion: 09/01/22 14:48 Dose: 0 mls/hr Documented By: Admin: 09/01/22 13:44 Dose: 1,000 mls/hr Documented By: LIGIA Ceftriaxone Sodium 1,000 mg/ (Sodium Chloride) 100 mls @ 200 mls/hr IV NOW ONE Stop: 09/01/22 14:06 Last Infusion: 09/01/22 15:17 Dose: 0 mls/hr Documented By: Admin: 09/01/22 14:45 Dose: 200 mls/hr Documented By: LIGIA Ketorolac Tromethamine (Ketorolac 30 Mg/Ml Vial) 15 mg IV NOW ONE Stop: 09/01/22 12:23 Last Admin: 09/01/22 12:45 Dose: 15 mg Documented By: BHARATH Lorazepam (Lorazepam 0.5 Mg Tablet) 1 mg PO NOW ONE Stop: 09/01/22 12:23 Last Admin: 09/01/22 12:37 Dose: 1 mg Documented By: BHARATH Lorazepam (Lorazepam 0.5 Mg Tablet) 0.5 mg PO NOW ONE Stop: 09/01/22 14:36 Last Admin: 09/01/22 14:45 Dose: 0.5 mg Documented By: LIGIA Vital Signs Vital signs: Vital Signs - 8 hr 09/01/22 09:52 09/01/22 12:00 09/01/22 10:30 Temperature 98.3 F Pulse Rate 107 H 116 H 109 H Respiratory Rate 22 Blood Pressure 169/117 H 146/99 H 129/84 Pulse Oximetry 94 98 97 Oxygen Delivery Method Room Air Room Air Room Air 09/01/22 11:00 09/01/22 11:30 09/01/22 13:00 Temperature Pulse Rate 107 H 109 H 100 H Respiratory Rate 20 Blood Pressure 137/86 134/90 137/81 Pulse Oximetry 94 97 97 Oxygen Delivery Method Room Air Room Air 09/01/22 14:00 09/01/22 15:00 Temperature Pulse Rate 104 H 107 H Respiratory Rate 20 20 Blood Pressure 151/89 H 124/64 Pulse Oximetry 93 95 Oxygen Delivery Method <Herman Fierro MD - Last Filed: 09/08/22 03:31> Orders Ordered: Discontinued Medications Sodium Chloride (Normal Saline 0.9%) 500 mls @ 1,000 mls/hr IV BOLUS ONE Stop: 09/01/22 12:38 Last Infusion: 09/01/22 13:44 Dose: 0 mls/hr Documented By: Admin: 09/01/22 12:45 Dose: 1,000 mls/hr Documented By: BHARATH Sodium Chloride (Normal Saline 0.9%) 500 mls @ 1,000 mls/hr IV BOLUS ONE Stop: 09/01/22 14:01 Last Infusion: 09/01/22 14:48 Dose: 0 mls/hr Documented By: Admin: 09/01/22 13:44 Dose: 1,000 mls/hr Documented By: LIGIA Ceftriaxone Sodium 1,000 mg/ (Sodium Chloride) 100 mls @ 200 mls/hr IV NOW ONE Stop: 09/01/22 14:06 Last Infusion: 09/01/22 15:17 Dose: 0 mls/hr Documented By: Admin: 09/01/22 14:45 Dose: 200 mls/hr Documented By: LIGIA Ketorolac Tromethamine (Ketorolac 30 Mg/Ml Vial) 15 mg IV NOW ONE Stop: 09/01/22 12:23 Last Admin: 09/01/22 12:45 Dose: 15 mg Documented By: BHARATH Lorazepam (Lorazepam 0.5 Mg Tablet) 1 mg PO NOW ONE Stop: 09/01/22 12:23 Last Admin: 09/01/22 12:37 Dose: 1 mg Documented By: BHARATH Lorazepam (Lorazepam 0.5 Mg Tablet) 0.5 mg PO NOW ONE Stop: 09/01/22 14:36 Last Admin: 09/01/22 14:45 Dose: 0.5 mg Documented By: LIGIA Vital Signs Vital signs: Vital Signs - 8 hr 09/01/22 09:52 09/01/22 12:00 09/01/22 10:30 Temperature 98.3 F Pulse Rate 107 H 116 H 109 H Respiratory Rate 22 Blood Pressure 169/117 H 146/99 H 129/84 Pulse Oximetry 94 98 97 Oxygen Delivery Method Room Air Room Air Room Air 09/01/22 11:00 09/01/22 11:30 09/01/22 13:00 Temperature Pulse Rate 107 H 109 H 100 H Respiratory Rate 20 Blood Pressure 137/86 134/90 137/81 Pulse Oximetry 94 97 97 Oxygen Delivery Method Room Air Room Air 09/01/22 14:00 09/01/22 15:00 Temperature Pulse Rate 104 H 107 H Respiratory Rate 20 20 Blood Pressure 151/89 H 124/64 Pulse Oximetry 93 95 Oxygen Delivery Method MDM - Back Pain/Injury <Pat Ahumada PA-C - Last Filed: 09/01/22 15:29> Differential Diagnosis Differential diagnosis: Likely lumbar radiculopathy, sciatica, strain of lumbar region, renal colic, pyelonephritis and other (UTI, ureterolithiasis) Medical Records Attestation: I reviewed the patient's medical records. Lab Data Attestation: I reviewed the patient's lab results. 09/01/22 13:11 09/01/22 13:11 Labs: Lab Results 09/01/22 09/01/22 09/01/22 Range/Units 10:51 13:11 13:11 WBC 15.5 H (4.5-11.0) X10^3/uL RBC 5.84 H (4.0-5.2) X10^6/uL Hgb 16.7 H (12.0-16.0) g/dL Hct 48.8 H (36-46) % MCV 83.5 (80-100) fL MCH 28.5 (26-34) PG MCHC 34.1 (30-36) % RDW 13.9 (11.6-14.8) % Plt Count 343 (150-400) X10^3/uL Neut % (Auto) 80.9 H (50-75) % Lymph % (Auto) 12.7 L (25-40) % Thayer % (Auto) 6.1 (3-14) % Eos % (Auto) 0.0 L (2-4) % Baso % (Auto) 0.3 (0-2) % Neut # (Auto) 06976 H (2776-3827) /uL Lymph # (Auto) 2000 (2263-2570) /uL Thayer # (Auto) 900 (0-900) /uL Eos # (Auto) 0 (0-450) /uL Baso # (Auto) 0 (0-100) /uL Sodium 136 L (137-145) mmol/L Potassium 4.7 (3.4-5.1) mmol/L Chloride 103 (98-107) mmol/L Carbon Dioxide 17 L (22-32) mmol/L BUN 26 H (7-17) mg/dL Creatinine 0.93 (0.52-1.04) mg/dL Estimated GFR > 60 (>60) mL/min BUN/Creatinine Ratio 28.0 H (6-22) Glucose 207 H (80-110) mg/dL Lactate (0.7-2.1) mmol/L Calcium 9.1 (8.4-10.2) mg/dL Total Bilirubin 0.8 (0.2-1.3) mg/dL AST 21 (14-36) IU/L ALT 22 (<35) IU/L Alkaline Phosphatase 100 (38-126) U/L Total Protein 7.5 (6.3-8.2) g/dL Albumin 4.2 (3.5-5.0) g/dL Globulin 3.3 (1.7-4.1) g/dL Albumin/Globulin Ratio 1.3 (1.0-2.8) Procalcitonin (<0.5) ng/mL Urine Color Yellow Urine Appearance Sl cloudy Urine pH 6.0 (4.5-8.0) Ur Specific [place] 1.020 (1.000-1.035) Urine Protein 1+ H (Negative) Urine Glucose (UA) 3+ H (Negative) g/dL Urine Ketones 3+ H (NEGATIVE) Urine Occult Blood Trace-intact (Negative) Urine Nitrate Positive H (Negative) Urine Bilirubin Negative (NEGATIVE) Urine Urobilinogen 0.2 (0.2) E.U./dL Ur Leukocyte Esterase Negative (NEGATIVE) Urine RBC 0-1/hpf (0-5/HPF) Urine WBC 5-10/hpf H (0-5/HPF) Ur Squamous Epith Cells 0-1 /hpf (0-5/HPF) Ur Transition Epith Cell 0-1/hpf (0-5/HPF) Amorphous Sediment 3+ Urine Bacteria Many (>30) H (None) Ur Culture Indicated? Specimen cultured 09/01/22 09/01/22 Range/Units 13:11 13:11 WBC (4.5-11.0) X10^3/uL RBC (4.0-5.2) X10^6/uL Hgb (12.0-16.0) g/dL Hct (36-46) % MCV (80-100) fL MCH (26-34) PG MCHC (30-36) % RDW (11.6-14.8) % Plt Count (150-400) X10^3/uL Neut % (Auto) (50-75) % Lymph % (Auto) (25-40) % Thayer % (Auto) (3-14) % Eos % (Auto) (2-4) % Baso % (Auto) (0-2) % Neut # (Auto) (1131-8770) /uL Lymph # (Auto) (9944-3342) /uL Thayer # (Auto) (0-900) /uL Eos # (Auto) (0-450) /uL Baso # (Auto) (0-100) /uL Sodium (137-145) mmol/L Potassium (3.4-5.1) mmol/L Chloride (98-107) mmol/L Carbon Dioxide (22-32) mmol/L BUN (7-17) mg/dL Creatinine (0.52-1.04) mg/dL Estimated GFR (>60) mL/min BUN/Creatinine Ratio (6-22) Glucose (80-110) mg/dL Lactate 2.1 (0.7-2.1) mmol/L Calcium (8.4-10.2) mg/dL Total Bilirubin (0.2-1.3) mg/dL AST (14-36) IU/L ALT (<35) IU/L Alkaline Phosphatase (38-126) U/L Total Protein (6.3-8.2) g/dL Albumin (3.5-5.0) g/dL Globulin (1.7-4.1) g/dL Albumin/Globulin Ratio (1.0-2.8) Procalcitonin 0.06 (<0.5) ng/mL Urine Color Urine Appearance Urine pH (4.5-8.0) Ur Specific [place] (1.000-1.035) Urine Protein (Negative) Urine Glucose (UA) (Negative) g/dL Urine Ketones (NEGATIVE) Urine Occult Blood (Negative) Urine Nitrate (Negative) Urine Bilirubin (NEGATIVE) Urine Urobilinogen (0.2) E.U./dL Ur Leukocyte Esterase (NEGATIVE) Urine RBC (0-5/HPF) Urine WBC (0-5/HPF) Ur Squamous Epith Cells (0-5/HPF) Ur Transition Epith Cell (0-5/HPF) Amorphous Sediment Urine Bacteria (None) Ur Culture Indicated? Urine Dip Bedside Urine Glucose 1000 mg/dl Bedside Urine Bilirubin - Negative Bedside Urine Ketone +++ 80 Urine Specific [place] 1.020 Bedside Urine Occult Blood +/- Bedside Urine pH 5.5 Bedside Urine Protein + 30 Bedside Urine Urobilinogen - Negative Bedside Urine Nitrite + Positive Bedside Urine Leukocytes - Negative Esterase Imaging Data CT scan - abdomen/pelvis: My Impression: I agree with radiologist's interpretation Radiologist's Impression: [address] [address] [address] Scan Report Signed Patient: Jaymie Whitaker MR#: [id number] : 1950 Acct:[id number] Age/Sex: 72 / F Date of Service: 09/01/22 Loc: ED Accession Number: [id number] ?? Procedure: CT kidney ureter bladder (KUB) Ordering Provider: Pat Ahumada P.A-C PROCEDURE:? CT KIDNEY URETER BLADDER (KUB) ? INDICATIONS:? UTI, low back pain, worsening ? TECHNIQUE:? Axial sections were acquired from the lung bases to the pubic symphysis.? Coronal and sagittal reformats were performed.? For radiation dose reduction, the following was used: ?automated exposure control, adjustment of mA and/or kV according to patient size.? ? COMPARISON:? None. ? FINDINGS:? Image quality:? Excellent.? ? Lung bases:? Unremarkable.? ? Heart:? No significant findings. ? URINARY: Right Kidney: ? Small burden of punctate, nonobstructing stones. Right Ureter:? No hydroureter.? ? Left Kidney:? Small burden of punctate, nonobstructing stones.? Renal sinus cysts.? No hydronephrosis. Left Ureter:? No hydroureter.? ? Bladder:? Normal wall thickness. No stones. ? ? ? ABDOMEN: Liver:? Unremarkable.? ? Gallbladder:? Unremarkable.? ? Biliary ducts:? Unremarkable.? ? Pancreas:? Unremarkable.? ? Spleen:? Unremarkable.? ? Adrenal Glands:? Unremarkable.? ? ? Stomach and Bowel:? Stomach, small bowel loops, and colon are unremarkable.? Peritoneum:? No abnormal intraperitoneal fluid.? No free air.? ? Ventral Wall: ? No hernia.? Abdominal Nodes:? No enlarged retroperitoneal or mesenteric lymph nodes.? Vessels:? Aorta and inferior vena cava are normal in size.? ? PELVIS: Pelvic Organs:? Unremarkable.? ? Pelvic Nodes: Unremarkable. Miscellaneous: No inguinal hernias are seen. ? ? ? Bones:? Unremarkable. ? IMPRESSION:? ? Small burden of bilateral, nonobstructing stones. ? ? ? Dictated by: Simon Pugh M.D. on 09/01/2022 at 12:58 ? ? Approved by: Simon Pugh M.D. on 09/01/2022 at 13:00?? MDM Narrative Medical decision making narrative: This is a 72-year-old woman with a history of sciatica, type 2 diabetes, hypertension hypercholesterolemia who presents today via ambulance for the 3rd time in the last 3 days to this emergency department with concern for left-sided worsening sciatic type pain. Yesterday when she was seen she had not actually taken any of the medication she was prescribed on the 1st day. She did state she started taking them last night and did take her last dose of prednisone and muscle relaxer early this morning. While patient does not have CVA tenderness, UA today is consistent with a definite UTI, additional labs are obtained, and CT KUB. She is tachycardic on presentation however this is as likely due in part to her pain and discomfort. She is treated with Ativan p.o., Toradol, 500 mL fluid bolus, labs show no increased lactate, leukocytosis to 15, no elevated procalcitonin. 2nd 500 mL fluid bolus after discovering leukocytosis, patient does have improvement with Toradol and Ativan however she is still uncomfortable. She has been in touch with her orthopedic and there is already a scheduled outpatient MRI to evaluate further for her sciatic issues, and she is supposed to see Orthopedics soon for possible surgery as well. She is no red flag symptoms today associated with her back pain. Does have a UTI which is treated as above and with IV ceftriaxone in the emergency department following with oral cefdinir. Did discuss this patient with attending physician, based on labs/presentation less suspicion for sepsis mild tachycardia does persist and I think this is likely in part due to her discomfort second to her sciatic symptoms. Patient is advised to continue her outpatient medications including muscle relaxer and her Medrol Dosepak, increase hydration. Monitor for new or worsening symptoms, return precautions provided, follow-up plan discussed, all questions answered. <Herman Fierro MD - Last Filed: 09/08/22 03:31> Lab Data Labs: Lab Results 09/01/22 09/01/22 09/01/22 Range/Units 10:51 13:11 13:11 WBC 15.5 H (4.5-11.0) X10^3/uL RBC 5.84 H (4.0-5.2) X10^6/uL Hgb 16.7 H (12.0-16.0) g/dL Hct 48.8 H (36-46) % MCV 83.5 (80-100) fL MCH 28.5 (26-34) PG MCHC 34.1 (30-36) % RDW 13.9 (11.6-14.8) % Plt Count 343 (150-400) X10^3/uL Neut % (Auto) 80.9 H (50-75) % Lymph % (Auto) 12.7 L (25-40) % Thayer % (Auto) 6.1 (3-14) % Eos % (Auto) 0.0 L (2-4) % Baso % (Auto) 0.3 (0-2) % Neut # (Auto) 45364 H (4577-7099) /uL Lymph # (Auto) 2000 (5585-0247) /uL Thayer # (Auto) 900 (0-900) /uL Eos # (Auto) 0 (0-450) /uL Baso # (Auto) 0 (0-100) /uL Sodium 136 L (137-145) mmol/L Potassium 4.7 (3.4-5.1) mmol/L Chloride 103 (98-107) mmol/L Carbon Dioxide 17 L (22-32) mmol/L BUN 26 H (7-17) mg/dL Creatinine 0.93 (0.52-1.04) mg/dL Estimated GFR > 60 (>60) mL/min BUN/Creatinine Ratio 28.0 H (6-22) Glucose 207 H (80-110) mg/dL Lactate (0.7-2.1) mmol/L Calcium 9.1 (8.4-10.2) mg/dL Total Bilirubin 0.8 (0.2-1.3) mg/dL AST 21 (14-36) IU/L ALT 22 (<35) IU/L Alkaline Phosphatase 100 (38-126) U/L Total Protein 7.5 (6.3-8.2) g/dL Albumin 4.2 (3.5-5.0) g/dL Globulin 3.3 (1.7-4.1) g/dL Albumin/Globulin Ratio 1.3 (1.0-2.8) Procalcitonin (<0.5) ng/mL Urine Color Yellow Urine Appearance Sl cloudy Urine pH 6.0 (4.5-8.0) Ur Specific [place] 1.020 (1.000-1.035) Urine Protein 1+ H (Negative) Urine Glucose (UA) 3+ H (Negative) g/dL Urine Ketones 3+ H (NEGATIVE) Urine Occult Blood Trace-intact (Negative) Urine Nitrate Positive H (Negative) Urine Bilirubin Negative (NEGATIVE) Urine Urobilinogen 0.2 (0.2) E.U./dL Ur Leukocyte Esterase Negative (NEGATIVE) Urine RBC 0-1/hpf (0-5/HPF) Urine WBC 5-10/hpf H (0-5/HPF) Ur Squamous Epith Cells 0-1 /hpf (0-5/HPF) Ur Transition Epith Cell 0-1/hpf (0-5/HPF) Amorphous Sediment 3+ Urine Bacteria Many (>30) H (None) Ur Culture Indicated? Specimen cultured 09/01/22 09/01/22 Range/Units 13:11 13:11 WBC (4.5-11.0) X10^3/uL RBC (4.0-5.2) X10^6/uL Hgb (12.0-16.0) g/dL Hct (36-46) % MCV (80-100) fL MCH (26-34) PG MCHC (30-36) % RDW (11.6-14.8) % Plt Count (150-400) X10^3/uL Neut % (Auto) (50-75) % Lymph % (Auto) (25-40) % Thayer % (Auto) (3-14) % Eos % (Auto) (2-4) % Baso % (Auto) (0-2) % Neut # (Auto) (1803-6163) /uL Lymph # (Auto) (5851-7681) /uL Thayer # (Auto) (0-900) /uL Eos # (Auto) (0-450) /uL Baso # (Auto) (0-100) /uL Sodium (137-145) mmol/L Potassium (3.4-5.1) mmol/L Chloride (98-107) mmol/L Carbon Dioxide (22-32) mmol/L BUN (7-17) mg/dL Creatinine (0.52-1.04) mg/dL Estimated GFR (>60) mL/min BUN/Creatinine Ratio (6-22) Glucose (80-110) mg/dL Lactate 2.1 (0.7-2.1) mmol/L Calcium (8.4-10.2) mg/dL Total Bilirubin (0.2-1.3) mg/dL AST (14-36) IU/L ALT (<35) IU/L Alkaline Phosphatase (38-126) U/L Total Protein (6.3-8.2) g/dL Albumin (3.5-5.0) g/dL Globulin (1.7-4.1) g/dL Albumin/Globulin Ratio (1.0-2.8) Procalcitonin 0.06 (<0.5) ng/mL Urine Color Urine Appearance Urine pH (4.5-8.0) Ur Specific [place] (1.000-1.035) Urine Protein (Negative) Urine Glucose (UA) (Negative) g/dL Urine Ketones (NEGATIVE) Urine Occult Blood (Negative) Urine Nitrate (Negative) Urine Bilirubin (NEGATIVE) Urine Urobilinogen (0.2) E.U./dL Ur Leukocyte Esterase (NEGATIVE) Urine RBC (0-5/HPF) Urine WBC (0-5/HPF) Ur Squamous Epith Cells (0-5/HPF) Ur Transition Epith Cell (0-5/HPF) Amorphous Sediment Urine Bacteria (None) Ur Culture Indicated? Urine Dip Bedside Urine Glucose 1000 mg/dl Bedside Urine Bilirubin - Negative Bedside Urine Ketone +++ 80 Urine Specific [place] 1.020 Bedside Urine Occult Blood +/- Bedside Urine pH 5.5 Bedside Urine Protein + 30 Bedside Urine Urobilinogen - Negative Bedside Urine Nitrite + Positive Bedside Urine Leukocytes - Negative Esterase Discharge Plan Departure Patient Disposition: Home Clinical Impression: Acute UTI, Acute left-sided low back pain with sciatica Instructions: DI for Urinary Tract Infection (UTI), DI for Back Pain With Sciatica Activity Restrictions/Additional Instructions: Thank you for letting us be part of your care today in the emergency department. You definitely have a urinary tract infection today and I suspect that this is partially responsible for your pain in your low back. We did give you fluids today in the emergency department, we checked her labs and we also performed a CT of your abdomen pelvis you do have some small stones in 1 of your kidneys however there do not appear to be any stones blocking your ureters. We treated you with IV antibiotics for the UTI and you need to continue antibiotics as an outpatient for the next 5 days as prescribed. I am glad that you have reached out to Orthopedics, you should get in for your MRI as soon as it can be scheduled and follow up closely with your orthopedic providers regarding further care and treatment for your back pain. If you do have new or worsening symptoms including fevers chills nausea vomiting diarrhea or other symptoms of concern do not hesitate to be re-evaluated. Please continue your steroid medication and muscle relaxers as needed to help with her discomfort you can also use lidocaine patches I am prescribing. Also recommend trying heat and gentle stretching. There is no evidence of an emergent or life threatening illness at this time, but follow up with your doctor in 1-2 days is recommended nonetheless to continue to rule out serious underlying causes of your symptoms. Please call the office for an appointment. Please return to the Emergency Department for any worsening or persistent symptoms. Please take medications as directed. Prescriptions: No Action (DME) Accu-Chek Makeda Plus test strp Strip See Rx Instructions .ROUTE .COMPLEX Qty: 100 2RF Dose Instruction: FOR DIABETES TYPE 2; USE TO TEST BLOOD GLUCOSE TWICE DAILY. Rx Instructions: FOR DIABETES TYPE 2; USE TO TEST BLOOD GLUCOSE TWICE DAILY. (DME) blood-glucose meter Kit See Rx Instructions .ROUTE .MEDSUPPLY Qty: 1 0RF Rx Instructions: Use to check blood sugars twice daily- Accu Check Meter metformin 500 mg tablet 1,000 mg PO BIDWMEAL Qty: 360 3RF (DME) lancets [BD Ultra Fine Lancets] 33 gauge misc See Rx Instructions .ROUTE .MEDSUPPLY Qty: 100 1RF Rx Instructions: USE TO TEST BLOOD GLUCOSE TWICE DAILY (DME) Parking Permit... See Rx Instructions .Route .MEDSUPPLY Qty: 1 0RF Rx Instructions: Parking permit for difficulty walking lisinopril 20 mg tablet 20 mg PO DAILY Patient Comments: TAKE ONE TABLET BY MOUTH ONE TIME DAILY Jardiance 25 mg tablet 25 mg PO DAILY Patient Comments: TAKE ONE TABLET BY MOUTH ONE TIME DAILY Referrals: Pawan Floyd, DO [Primary Care Provider] - Stand Alone Forms: Patient Portal/API <Herman Fierro MD - Last Filed: 09/08/22 03:31> Cosign ED Attending Cosdavidature Attestation: I was immediately available in the department for consultation. ?This documentation has been reviewed and I agree with assessment and plan. Supervised by Herman Fierro MD
--- NOTE | 2022-09-01 12:23 | DI.CT.S_ITS ---
PROCEDURE: CT KIDNEY URETER BLADDER (KUB) INDICATIONS: UTI, low back pain, worsening TECHNIQUE: Axial sections were acquired from the lung bases to the pubic symphysis. Coronal and sagittal reformats were performed. For radiation dose reduction, the following was used: automated exposure control, adjustment of mA and/or kV according to patient size. COMPARISON: None. FINDINGS: Image quality: Excellent. Lung bases: Unremarkable. Heart: No significant findings. URINARY: Right Kidney: Small burden of punctate, nonobstructing stones. Right Ureter: No hydroureter. Left Kidney: Small burden of punctate, nonobstructing stones. Renal sinus cysts. No hydronephrosis. Left Ureter: No hydroureter. Bladder: Normal wall thickness. No stones. ABDOMEN: Liver: Unremarkable. Gallbladder: Unremarkable. Biliary ducts: Unremarkable. Pancreas: Unremarkable. Spleen: Unremarkable. Adrenal Glands: Unremarkable. Stomach and Bowel: Stomach, small bowel loops, and colon are unremarkable. Peritoneum: No abnormal intraperitoneal fluid. No free air. Ventral Wall: No hernia. Abdominal Nodes: No enlarged retroperitoneal or mesenteric lymph nodes. Vessels: Aorta and inferior vena cava are normal in size. PELVIS: Pelvic Organs: Unremarkable. Pelvic Nodes: Unremarkable. Miscellaneous: No inguinal hernias are seen. Bones: Unremarkable. IMPRESSION: Small burden of bilateral, nonobstructing stones. Dictated by: Simon Pugh M.D. on 09/01/2022 at 12:58 Approved by: Simon Pugh M.D. on 09/01/2022 at 13:00
[2022-09-01] MEDS: LORazepam 0.5 MG TABLET 1 MG PO (12:37)
[2022-09-01] MEDS: SODIUM CHLORIDE 0.9% 500 ML 1000 ML IV ×2 (12:45→13:44)
[2022-09-01] MEDS: KETOROLAC 30 MG/ML VIAL 15 MG IV (12:45)
[2022-09-01 13:24] LABS: Add Manual Diff / Slide Review NO; Basophils Absolute Auto 0 /uL (0-100); Basophils Percent Auto 0.3 % (0-2); Eosinophils Absolute Auto 0 /uL (0-450); Hematocrit 48.8 % (36-46); Hemoglobin 16.7 g/dL (12.0-16.0); Lymphocytes Absolute Auto 2000 /uL (1100-4500); Lymphocytes Percent Auto 12.7 % (25-40); Mean Corpuscular HGB Conc 34.1 % (30-36); Mean Corpuscular Hemoglobin 28.5 PG (26-34); Mean Corpuscular Volume 83.5 fL (80-100); Monocytes Absolute Auto 900 /uL (0-900); Monocytes Percent Auto 6.1 % (3-14); Neutrophils Absolute Auto 12500 /uL (1500-7000); Neutrophils Percent Auto 80.9 % (50-75); Platelet Count 343 X10^3/uL (150-400); Red Blood Cell Count 5.84 X10^6/uL (4.0-5.2); Red Cell Distribution Width 13.9 % (11.6-14.8); White Blood Cell Count 15.5 X10^3/uL (4.5-11.0)
[2022-09-01 13:32] LABS: Alanine Aminotransferase 22 IU/L (<35); Albumin 4.2 g/dL (3.5-5.0); Albumin Globulin Ratio 1.3 (1.0-2.8); Alkaline Phosphatase 100 U/L (38-126); Aspartate Aminotransferase 21 IU/L (14-36); Bilirubin Total 0.8 mg/dL (0.2-1.3); Blood Urea Nitrogen 26 mg/dL (7-17); Calcium 9.1 mg/dL (8.4-10.2); Carbon Dioxide 17 mmol/L (22-32); Chloride 103 mmol/L (98-107); Estimated Glomerular Filt Rate > 60 mL/min (>60); Globulin 3.3 g/dL (1.7-4.1); Glucose 207 mg/dL (80-110); HEMOLYSIS < 15 (0-50); Potassium 4.7 mmol/L (3.4-5.1); Sodium 136 mmol/L (137-145); Total Protein 7.5 g/dL (6.3-8.2)
[2022-09-01 13:56] LABS: Lactate (Lactic Acid) 2.1 mmol/L (0.7-2.1)
--- NOTE | 2022-09-01 13:58 | PC.NURSE ---
[facility] phoned to inform the patient that her insurance has approved the MRI, to be done at [facility]. The order is in and they have attempted to call her today to schedule the MRI. Pt has been notified.
[2022-09-01 14:14] LABS: Procalcitonin 0.06 ng/mL (<0.5)
[2022-09-01] MEDS: LORazepam 0.5 MG TABLET PO (14:45)
[2022-09-01] MEDS: cefTRIAXone 1,000 MG in SODIUM CHLORIDE 0.9% 100 ML 200 MG IV (14:45)
[2022-09-01 15:40] LABS: Reflexed Lactate in 2 Hours Y
== END 2022-09-01 15:49 | disposition home or self-care (01) ==
PROVIDERS: Emergency Medicine; Emergency Provider Student in an Organized Health Care Education/Training Program; Family Provider Family Medicine; PCP Family Medicine
DX: M54.42 Lumbago with sciatica, left side (principal); N39.0 Urinary tract infection, site not specified; R79.89 Other specified abnormal findings of blood chemistry
CPT/HCPCS: 36415; 74176; 80053; 81001; 81003; 83605; 84145; 85025; 87086; 96365; 96375; 99284; J0696; J1885

== ENCOUNTER → 2022-09-02 09:01 | Outpatient (CLI) | payer MEDICARE, MEDICAID, SELFPAY ==
--- NOTE | 2022-09-02 | DI.MRI.S_ITS ---
PROCEDURE: MR LUMBAR SPINE WO CON INDICATIONS: Radiculopathy, lumbar region TECHNIQUE: Noncontrast sagittal T1 spin echo and T2 fast echo, sagittal STIR, and T2 fast spin echo through the lumbar spine. In cases with scoliosis, additional coronal T2 fast spin echo may be performed. COMPARISON: None. FINDINGS: Image quality: Motion artifact limits evaluation on all sequences. Alignment and Curvature: There is normal bony alignment. Bone Marrow: Marrow is of normal overall signal. No acute vertebral body compression fractures. Spinal Cord: Conus medullaris terminates at the L1 level. Visualized cord demonstrates normal signal and size. Paraspinous Soft Tissues: No paravertebral masses. T12-L1: Normal appearance. L1-L2: Normal appearance. L2-L3: Normal appearance. L3-L4: Mild disc bulge. Mild facet and ligamentum flavum hypertrophy. No canal stenosis. Mild bilateral neural foraminal stenosis. L4-L5: Mild disc desiccation and height loss. Broad-based disc bulge. Moderate facet and ligamentum flavum hypertrophy. No canal stenosis. No neural foraminal stenosis. L5-S1: There is a left lateral 1.8 x 1.0 x 0.9 cm disc protrusion which results in severe left neural foraminal stenosis and displacement of the exiting nerve root at that level root. IMPRESSION: 1. Marked motion artifact limits evaluation of all sequences. 2. Left lateral disc protrusion with resultant severe neural foraminal stenosis and displacement of the exiting nerve root. 3. No other significant canal stenosis or foraminal narrowing of the lumbar spine where visualized. Dictated by: Esperanza Brito M.D. on 09/02/2022 at 10:48 Approved by: Esperanza Brito M.D. on 09/02/2022 at 11:03
== END ==
PROVIDERS: Family Provider Family Medicine; PCP Family Medicine; Referring Provider Physician Assistant; Visit Provider Physician Assistant
DX: M51.17 Intervertebral disc disorders with radiculopathy, lumbosacral region (principal); M48.07 Spinal stenosis, lumbosacral region
CPT/HCPCS: 72148

== ENCOUNTER 2022-09-05 11:00 | Inpatient (IN) | payer MEDICARE, MEDICAID, SELFPAY ==
[2022-09-05 11:05] VITALS: BP 134/73; PULSE 114; RESP 17; TEMP 36.9; O2SAT 97; BMI 24.4
[2022-09-05] MEDS: ONDANSETRON 4 MG/2 ML INJ IV (11:10)
[2022-09-05] MEDS: SODIUM CHLORIDE 0.9% 1,000 ML 1000 ML IV (11:10)
--- NOTE | 2022-09-05 11:10 | ED.GENADULT ---
HPI - General Adult General Chief complaint: Back Pain/Injury Stated complaint: Back Pain, not keeping food down Time Seen by Provider: 09/05/22 11:04 Source: patient and EMS Mode of arrival: EMS Limitations: no limitations History of Present Illness HPI narrative: Patient is a 72-year-old female. This is her 4th visit in the past 7-10 days. She is been here each time for lower back discomfort. She is had multiple workups to include x-rays and CT scans and an MRI. She does have disc disease in the left side that is causing severe stenosis. She is having pain radiating down her left leg. When she was here couple days ago she was diagnosed with a urinary tract infection although I feel that this is an incidental finding. Low suspicion for pyelonephritis. When she was here the last time she would not been able to take her medications because of vomiting. She was dehydrated. Was tachycardic. Improved after medications and discharged home. Since that time she is not been able to take any of her steroids. She has taken limited amounts of her other medicines as well because of vomiting. Continues to be in discomfort. Is drinking fluids but has not been eating. Has not been able to get up out of the bed were stand or walk because of discomfort. She is unsure if she is even taking any antibiotics. She stated that she did fill prescriptions that were given to her during her last visit but she does not remember what they were. No bowel or bladder dysfunction no fevers. Related Data Previous Rx's Medication Instructions Recorded lancets 33 gauge (BD Ultra Fine #100 ea 09/02/19 Lancets) epinephrine 0.3 mg/0.3 mL 0.3 mg (0.3 mL) IM Q5-15M PRN 12/03/20 injection, auto-injector (EpiPen anaphylaxis #2 ea 2-Jaspreet) Parking Permit... #1 ea 03/22/22 cyclobenzaprine 5 mg tablet 5 mg PO Q8H PRN muscle spasm #30 03/22/22 tabs naproxen 500 mg tablet 500 mg PO BID PRN pain #60 tabs 03/22/22 lisinopril 20 mg tablet 20 mg PO DAILY #90 tabs 04/05/22 metformin 500 mg tablet 1,000 mg PO BIDWMEAL #360 tabs 04/05/22 atorvastatin 80 mg tablet (Lipitor) 80 mg PO BEDTIME #90 tabs 04/06/22 gabapentin 100 mg capsule See Rx Instructions .Route 04/21/22 .COMPLEX #180 caps blood sugar diagnostic (Accu-Chek ##100 05/04/22 Makeda Plus test strips) blood-glucose meter #1 ea 05/17/22 fluconazole 150 mg tablet 150 mg PO Q3D 2 doses #5 tabs 05/25/22 (Diflucan) nystatin-triamcinolone 100,000 1 applic topical BID #30 grams 05/25/22 unit/gram-0.1 % topical ointment empagliflozin 25 mg tablet 25 mg PO DAILY #90 tabs 08/16/22 (Jardiance) pioglitazone 15 mg tablet 15 mg PO DAILY #90 tabs 08/16/22 methylprednisolone 4 mg tablets in 4 mg PO DAILY #21 ea 08/31/22 a dose pack (Medrol (Jaspreet)) cefdinir 300 mg capsule 300 mg PO BID UTI 5 days #10 caps 09/01/22 lidocaine 5 % topical patch 1 patch topical DAILY PRN pain 15 09/01/22 days #15 ea Allergies Allergy/AdvReac Type Severity Reaction Status Date / Time bee venom protein (honey bee) Allergy Severe SOB and Verified 09/05/22 11:09 swelling codeine [CODEINE] Allergy Intermediate NAUSEA Verified 09/05/22 11:09 Sulfa (Sulfonamide Allergy Unknown PATIENT Verified 09/05/22 11:09 Antibiotics) CAN'T [SULFA (SULFONAMIDE REMEMBER ANTIBIOTICS)] Review of Systems Constitutional Constitutional: Reports system reviewed and no additional complaints, except as documented Gastrointestinal Gastrointestinal: Reports system reviewed and no additional complaints, except as documented Genitourinary Genitourinary: Reports system reviewed and no additional complaints, except as documented Musculoskeletal Musculoskeletal: Reports system reviewed and no additional complaints, except as documented Integumentary/Breasts Skin/Breast: Reports system reviewed and no additional complaints, except as documented Neurologic Neurologic: Reports system reviewed and no additional complaints, except as documented Patient History Medical History Actinic keratosis Breast cancer screening Breast pain, left Chronic lower back pain Essential hypertension Hypercholesterolemia MCL sprain of right knee Seborrheic keratoses Skin tags, multiple acquired Type 2 diabetes mellitus Social History Smoking Status: Former smoker Smoking Status: Former smoker tobacco type: cigarettes alcohol intake frequency: 0-2 drinks per day Substance Use Type: marijuana Exam Initial Vital Signs Initial Vital Signs: Vital Signs Temperature 98.5 F 09/05/22 11:05 Pulse Rate 114 H 09/05/22 11:05 Respiratory Rate 17 09/05/22 11:05 Blood Pressure 134/73 09/05/22 11:05 Pulse Oximetry 97 09/05/22 11:05 Oxygen Delivery Method Room Air 09/05/22 11:05 Const General: cooperative and No ill appearing HENMT Head: normal to inspection and normocephalic Resp Effort & Inspection: normal respiratory effort Auscultation: clear to auscultation bilaterally Cardio Rate: tachycardic Back/Spine/Pelvis Other: Left-sided SI joint discomfort and lower back discomfort. Neuro Other: Radicular symptoms with pain radiating down in the area of the L5-S1 nerve distribution. Left side Extrem General: normal to inspection and capillary refill normal Course Orders Ordered: ED Orders 09/05/22 11:10 Basic Metabolic Panel Stat Complete Blood Count AUTO DIFF Stat Sodium Chloride (Normal Saline 0.9%) 1,000 mls @ 1,000 mls/hr IV BOLUS ONE Stop: 09/05/22 12:06 Last Admin: 09/05/22 11:10 Dose: 1,000 mls/hr Documented By: AT Discontinued Medications Hydromorphone HCl (Hydromorphone 1 Mg Inj) 1 mg IV NOW ONE Stop: 09/05/22 11:33 Last Admin: 09/05/22 11:48 Dose: 1 mg Documented By: AMU Ondansetron HCl (Ondansetron 4 Mg/2 Ml Inj) 4 mg IV NOW ONE Stop: 09/05/22 11:08 Last Admin: 09/05/22 11:10 Dose: 4 mg Documented By: AT Vital Signs Vital signs: Vital Signs - 8 hr 09/05/22 11:05 Temperature 98.5 F Pulse Rate 114 H Respiratory Rate 17 Blood Pressure 134/73 Pulse Oximetry 97 Oxygen Delivery Method Room Air Medical Decision Making Medical Records Medical records reviewed: Yes I reviewed the patient's medical records. Lab Data Lab results reviewed: Yes I reviewed the patient's lab results. 09/05/22 11:10 09/05/22 11:10 Labs: Lab Results 09/05/22 09/05/22 Range/Units 11:10 11:10 WBC 13.6 H (4.5-11.0) X10^3/uL RBC 6.41 H (4.0-5.2) X10^6/uL Hgb 18.1 H (12.0-16.0) g/dL Hct 53.8 H (36-46) % MCV 83.8 (80-100) fL MCH 28.3 (26-34) PG MCHC 33.7 (30-36) % RDW 14.2 (11.6-14.8) % Plt Count 453 H (150-400) X10^3/uL Neut % (Auto) 72.0 (50-75) % Lymph % (Auto) 20.5 L (25-40) % [place] % (Auto) 6.9 (3-14) % Eos % (Auto) 0.2 L (2-4) % Baso % (Auto) 0.4 (0-2) % Neut # (Auto) 9800 H (0841-5662) /uL Lymph # (Auto) 2800 (3868-6340) /uL [place] # (Auto) 900 (0-900) /uL Eos # (Auto) 0 (0-450) /uL Baso # (Auto) 0 (0-100) /uL Sodium 132 L (137-145) mmol/L Potassium 4.4 (3.4-5.1) mmol/L Chloride 97 L (98-107) mmol/L Carbon Dioxide 14 L (22-32) mmol/L BUN 36 H (7-17) mg/dL Creatinine 0.88 (0.52-1.04) mg/dL Estimated GFR > 60 (>60) mL/min BUN/Creatinine Ratio 40.9 H (6-22) Glucose 251 H (80-110) mg/dL Calcium 10.4 H (8.4-10.2) mg/dL [facility] Narrative Medical decision making narrative: Fourth visit in the past 7-10 days. Her symptoms that she presents with today are not new there does not any better. She is been unable to take her medications at home. Has been tachycardic. Pain is not controlled at home. She does not have any bowel or bladder symptoms. I feel that we can hold on further radiologic studies for now. Discussed the case with Dr. Schaffer who was hospitalist on today. We will admit for further evaluation and treatment. Discussed the need for admission with the patient. She expressed understanding and agreement as well. Discharge Plan Departure Patient Disposition: Admitted as Observation Clinical Impression: Sciatica, Tachycardia, Intractable low back pain Admit Date/Time: 09/05/22 11:35 Admit Provider: Lupe Fuentes
--- NOTE | 2022-09-05 11:22 | PC.NURSE ---
No loss of bowel or bladder function. Pt does report nausea after taking her steroids so she stopped taking them after one dose. Decreased appetite but has been drinking water well
[2022-09-05 11:41] LABS: Add Manual Diff / Slide Review NO; Basophils Absolute Auto 0 /uL (0-100); Basophils Percent Auto 0.4 % (0-2); Eosinophils Absolute Auto 0 /uL (0-450); Eosinophils Percent Auto 0.2 % (2-4); Hematocrit 53.8 % (36-46); Hemoglobin 18.1 g/dL (12.0-16.0); Lymphocytes Absolute Auto 2800 /uL (1100-4500); Lymphocytes Percent Auto 20.5 % (25-40); Mean Corpuscular HGB Conc 33.7 % (30-36); Mean Corpuscular Hemoglobin 28.3 PG (26-34); Mean Corpuscular Volume 83.8 fL (80-100); Monocytes Absolute Auto 900 /uL (0-900); Monocytes Percent Auto 6.9 % (3-14); Neutrophils Absolute Auto 9800 /uL (1500-7000); Platelet Count 453 X10^3/uL (150-400); Red Blood Cell Count 6.41 X10^6/uL (4.0-5.2); Red Cell Distribution Width 14.2 % (11.6-14.8); White Blood Cell Count 13.6 X10^3/uL (4.5-11.0)
[2022-09-05 11:47] LABS: BUN Creatinine Ratio 40.9 (6-22); Blood Urea Nitrogen 36 mg/dL (7-17); Calcium 10.4 mg/dL (8.4-10.2); Carbon Dioxide 14 mmol/L (22-32); Chloride 97 mmol/L (98-107); Estimated Glomerular Filt Rate > 60 mL/min (>60); Glucose 251 mg/dL (80-110); HEMOLYSIS 36 (0-50); Potassium 4.4 mmol/L (3.4-5.1); Sodium 132 mmol/L (137-145)
[2022-09-05] MEDS: HYDROMORPHONE 1 MG INJ IV ×3 (11:48→20:55)
[2022-09-05 12:55] VITALS: BMI 24.7
[2022-09-05 13:57] LABS: COVID19 -Nasal RAPID Negative (Negative)
[2022-09-05 14:31] VITALS: BP 151/77; PULSE 108; RESP 16; TEMP 37; O2SAT 96
--- NOTE | 2022-09-05 16:10 | P.HP_ITS ---
History of Present Illness History of Present Illness Date Patient Seen: 09/05/22 Chief complaint: Back Pain, not keeping food down Narrative: Patient is a 72-year-old female.? This has been her 4th visit in the past 7-10 days to the ER.? She is been here each time for lower back discomfort.? She is had multiple workups to include x-rays and CT scans and an MRI.? She does have disc disease in the left side that is causing severe stenosis.? She is having pain radiating down her left leg.? When she was here couple days ago she was diagnosed with a urinary tract infection and it was thought to be an incidental finding.? There was low suspicion for pyelonephritis.? Last time in the ER, she was not been able to take her medications because of vomiting.? She was dehydrated.? Was tachycardic.? Improved after medications and discharged home.? Since that time she is not been able to take any of her steroids.? She has taken limited amounts of her other medicines as well because of vomiting.? Continues to be in discomfort.? Is drinking fluids but has not been eating.? Has not been able to get up out of the bed were stand or walk because of discomfort.? She is unsure if she is even taking any antibiotics.? She stated that she did fill prescriptions that were given to her during her last visit but she does not remember what they were.? No bowel or bladder dysfunction no fevers. No chills. No shortness of breath wheezing or cough. No abdominal pain constipation or diarrhea. Able to move all extremities volitionally. Pain mostly confined to the low back with radiation to the left leg. Previous ER visit urine culture was mixed tyrell in no actual infection. Patient has a history of diabetes, hyperlipidemia and hypertension. [facility] Medical History Actinic keratosis Breast cancer screening Breast pain, left Chronic lower back pain Essential hypertension Hypercholesterolemia MCL sprain of right knee Seborrheic keratoses Skin tags, multiple acquired Type 2 diabetes mellitus Social History household members: significant other Smoking Status: Former smoker Meds Home Medications and Allergies Home Medications Medication Instructions Recorded Confirmed Type lancets 33 gauge (BD Ultra Fine #100 ea 09/02/19 08/16/22 Rx Lancets) Parking Permit... #1 ea 03/22/22 08/16/22 Rx metformin 500 mg tablet 1,000 mg PO BIDWMEAL #360 tabs 04/05/22 09/05/22 Rx blood sugar diagnostic (Accu-Chek ##100 05/04/22 08/16/22 Rx Makeda Plus test strips) blood-glucose meter #1 ea 05/17/22 08/16/22 Rx empagliflozin 25 mg tablet 25 mg PO DAILY 09/05/22 09/05/22 History (Jardiance) lisinopril 20 mg tablet 20 mg PO DAILY 09/05/22 09/05/22 History Allergies Allergy/AdvReac Type Severity Reaction Status Date / Time bee venom protein (honey bee) Allergy Severe SOB and Verified 09/05/22 11:09 swelling codeine [CODEINE] Allergy Intermediate NAUSEA Verified 09/05/22 11:09 Sulfa (Sulfonamide Allergy Unknown PATIENT Verified 09/05/22 11:09 Antibiotics) CAN'T [SULFA (SULFONAMIDE REMEMBER ANTIBIOTICS)] Review of Systems Review of Systems Narrative: Fourteen system review was completed and pertinent findings in the history of chief complaint. Exam Vital Signs (past 8 hours): - 09/05/22 11:05 09/05/22 14:31 Temperature 98.5 F 98.6 F Pulse Rate 114 H 108 H Respiratory Rate 17 16 Blood Pressure 134/73 151/77 H Pulse Oximetry 97 96 Oxygen Delivery Method Room Air Oxygen Flow Rate 0 Oxygen Delivery Method Room Air Oxygen Flow Rate 0 Narrative Exam Narrative: General: Alert oriented and cooperative. Does not appear to be in any acute medical distress. HEENT: Head is normocephalic. Trachea is midline. No palpable neck nodes. N rios is supple. Cardiovascular: Heart sounds S1 and S2 with no extra sounds or murmurs. Noticed tachycardia. Respiratory: Adequate air entry throughout the lung rivas no wheezes or crackles. Normal expansion of the chest. Gastrointestinal: Abdomen is soft. Nontender. Bowel sounds normal Musculoskeletal: Tenderness of the low back in particular the left SI joint. Decreased range of motion lumbar back pain. Able to move all extremities normally. Neuro: Placed straight leg raising at 45? left side. Normal sensation of all extremities. Skin: No new lesions or rashes. Psych: Normal mood and affect. Objective Labs 09/05/22 11:10 09/05/22 11:10 Labs: Laboratory Results - last 24 hr 09/05/22 09/05/22 09/05/22 11:10 11:10 13:35 WBC 13.6 H RBC 6.41 H Hgb 18.1 H Hct 53.8 H MCV 83.8 MCH 28.3 MCHC 33.7 RDW 14.2 Plt Count 453 H Neut % (Auto) 72.0 Lymph % (Auto) 20.5 L [place] % (Auto) 6.9 Eos % (Auto) 0.2 L Baso % (Auto) 0.4 Neut # (Auto) 9800 H Lymph # (Auto) 2800 [place] # (Auto) 900 Eos # (Auto) 0 Baso # (Auto) 0 Sodium 132 L Potassium 4.4 Chloride 97 L Carbon Dioxide 14 L BUN 36 H Creatinine 0.88 Estimated GFR > 60 BUN/Creatinine Ratio 40.9 H Glucose 251 H Calcium 10.4 H SARS-CoV-2 (PCR) Negative Assessment & Plan Assessment & Plan narrative: 1. Lumbar degenerative disc with some stenosis. Causing significant lumbar pain. Pain medications include Tylenol, IV Dilaudid and Toradol. As well gabapentin has been ordered. Solu-Medrol 125 mg IV 1 time dose followed by prednisone 50 mg daily starting tomorrow for 5 days. This will help decrease any swelling around the degenerated disc and hopefully cause less irritation of the nervous well. Physical therapy. 2. Concern with previously UTI that was not treated. Urinalysis and and reflex culture if appropriate. 3. Diabetes. Continue patient's regular home medication. Follow clinically and labs. May need sliding scale insulin due to steroids and therefore will order. 4. Hyperlipidemia history. Patient not on any anti-lipid medication. Tests lipid panel in the morning. Treat if appropriate. Most likely is appropriate due to the patient having diabetes. 5. Hypertension. Maintain patient's regular medication and follow. COVID tests: Negative. Code status: Full code DVT prophylaxis: Enoxaparin 40 mg subQ daily PPI prophylaxis: Pantoprazole 40 mg daily Surrogate decision maker: Kamran Joya COVID-19 COVID-19 status: Negative Quality VTE Deep Vein Thrombosis/Pulmonary Embolism Present on Admission: No
[2022-09-05] MEDS: methylPREDNISolone 125 MG/2 ML VIAL IV (16:38)
[2022-09-05] MEDS: KETOROLAC 30 MG/ML VIAL 15 MG IV ×2 (16:38→22:48)
[2022-09-05] MEDS: SODIUM CHLORIDE 0.9% 1,000 ML 150 ML IV (16:49)
[2022-09-05] MEDS: GABAPENTIN 100 MG CAPSULE PO ×2 (16:55→20:55)
[2022-09-05] MEDS: METFORMIN HCL 500 MG TABLET 1000 MG PO (17:00)
[2022-09-05] MEDS: INSULIN LISPRO 100 UNIT/ML 3ML VIAL SUBCUT ×2 (17:00→20:55)
[2022-09-05 18:11] LABS: Appearance Urine UA CLEAR; Bilirubin Urine UA NEGATIVE (NEGATIVE); Color Urine UA YELLOW; Glucose Urine UA 3+ g/dL (Negative); Ketones Urine UA 2+ (NEGATIVE); Leukocyte Esterase Urine UA NEGATIVE (NEGATIVE); Nitrite Urine UA NEGATIVE (Negative); Occult Blood Urine UA NEGATIVE (Negative); Protein Urine UA NEGATIVE (Negative); Urobilinogen Urine UA 0.2 E.U./dL (0.2)
[2022-09-05 18:26] LABS: Bacteria Urine None Seen; Culture Indicated Urine Cult Not Indicated; RBC Urine None Seen (0-5/HPF); WBC Urine None Seen (0-5/HPF)
--- NOTE | 2022-09-05 18:51 | PC.NURSE ---
Addendum entered by Kaleigh Winslow R.N. 09/05/22 18:55: U/A sent to lab. pre dinner BG 146 Original Note: Pt arrived from ED this afternoon approximately 1400, A&Ox4. SBP slightly elevated, she remains on RA.C/O 9/10 pain to back. She is only able to turn side to side with difficulty and lift head of bed about 30 this afternoon due to pain. she denies n/v but report vomitting the past few days due to pain. MD notified and received orders for pain medications. She reports pain imroved to 7/10 pain but is able to eat and rest. Face is flushed and states she hasn't hardly slept in the past 5 days. NS IVF running at 150 ml/hr, Purewick in place, call light in reach, q 2 hour repositioning and frequent rounding.
[2022-09-05 19:45] VITALS: BP 145/81; PULSE 99; RESP 18; TEMP 36.4; O2SAT 96
[2022-09-05] MEDS: TRAZODONE 50 MG TABLET 25 MG PO (20:54)
[2022-09-05] MEDS: GABAPENTIN 300 MG CAPSULE PO (20:55)
[2022-09-06] MEDS: SODIUM CHLORIDE 0.9% 1,000 ML 150 ML IV ×2 (00:18→06:56)
[2022-09-06] MEDS: HYDROMORPHONE 1 MG INJ IV ×2 (00:19→08:46)
[2022-09-06] MEDS: KETOROLAC 30 MG/ML VIAL 15 MG IV ×2 (05:45→11:45)
[2022-09-06 06:56] LABS: Cholesterol 296 mg/dL (140-199); HDL Cholesterol 45 mg/dL (40-60); LDL Cholesterol Calculated 220 mg/dL (<100); Triglycerides 156 mg/dL (35-150)
--- NOTE | 2022-09-06 08:39 | PM.PN.1 ---
Subjective Subjective Interval history: Patient still having severe pain requiring IV dilaudid. Spoke with ortho who will consult in case surgery needed. Exam Vital Signs (past 8 hours): Oxygen Delivery Method Room Air Oxygen Flow Rate 0 Narrative Exam Narrative: General: Alert oriented and cooperative. Appears to be in pain. HEENT: Head is normocephalic. Trachea is midline. No palpable neck nodes. Neck is supple. Cardiovascular: Heart sounds S1 and S2 with no extra sounds or murmurs. Noticed tachycardia. Respiratory: Adequate air entry throughout the lung rivas no wheezes or crackles. Normal expansion of the chest. Gastrointestinal: Abdomen is soft. Nontender. Bowel sounds normal Musculoskeletal: Tenderness of the low back in particular the left SI joint. Decreased range of motion lumbar back pain. Able to move all extremities normally. Neuro: Placed straight leg raising at 45? left side. Normal sensation of all extremities. Skin: No new lesions or rashes. Psych: Normal mood and affect. Objective Labs 09/05/22 11:10 09/05/22 11:10 Labs: Laboratory Results - last 24 hr 09/05/22 09/05/22 09/05/22 11:10 11:10 13:35 WBC 13.6 H RBC 6.41 H Hgb 18.1 H Hct 53.8 H MCV 83.8 MCH 28.3 MCHC 33.7 RDW 14.2 Plt Count 453 H Neut % (Auto) 72.0 Lymph % (Auto) 20.5 L [place] % (Auto) 6.9 Eos % (Auto) 0.2 L Baso % (Auto) 0.4 Neut # (Auto) 9800 H Lymph # (Auto) 2800 [place] # (Auto) 900 Eos # (Auto) 0 Baso # (Auto) 0 Sodium 132 L Potassium 4.4 Chloride 97 L Carbon Dioxide 14 L BUN 36 H Creatinine 0.88 Estimated GFR > 60 BUN/Creatinine Ratio 40.9 H Glucose 251 H Calcium 10.4 H Triglycerides Cholesterol LDL Cholesterol, Calc HDL Cholesterol Urine Color Urine Appearance Urine pH Ur Specific [place] Urine Protein Urine Glucose (UA) Urine Ketones Urine Occult Blood Urine Nitrate Urine Bilirubin Urine Urobilinogen Ur Leukocyte Esterase Urine RBC Urine WBC Urine Bacteria Ur Culture Indicated? SARS-CoV-2 (PCR) Negative 09/05/22 09/06/22 17:55 06:05 WBC RBC Hgb Hct MCV MCH MCHC RDW Plt Count Neut % (Auto) Lymph % (Auto) [place] % (Auto) Eos % (Auto) Baso % (Auto) Neut # (Auto) Lymph # (Auto) [place] # (Auto) Eos # (Auto) Baso # (Auto) Sodium Potassium Chloride Carbon Dioxide BUN Creatinine Estimated GFR BUN/Creatinine Ratio Glucose Calcium Triglycerides 156 H Cholesterol 296 H LDL Cholesterol, Calc 220 H HDL Cholesterol 45 Urine Color Yellow Urine Appearance Clear Urine pH 6.0 Ur Specific [place] 1.020 Urine Protein Negative Urine Glucose (UA) 3+ H Urine Ketones 2+ H Urine Occult Blood Negative Urine Nitrate Negative Urine Bilirubin Negative Urine Urobilinogen 0.2 Ur Leukocyte Esterase Negative Urine RBC None seen Urine WBC None seen Urine Bacteria None seen Ur Culture Indicated? Cult not indicated SARS-CoV-2 (PCR) [facility] Medical History Actinic keratosis Breast cancer screening Breast pain, left Chronic lower back pain Essential hypertension Hypercholesterolemia MCL sprain of right knee Seborrheic keratoses Skin tags, multiple acquired Type 2 diabetes mellitus Social History household members: significant other Smoking Status: Former smoker Assessment & Plan Assessment & Plan narrative: 1. Acute herniated disc of L5-S1 causing significant lumbar pain. -Pain medications include Tylenol, IV Dilaudid, Oxy and Toradol. -gabapentin has been ordered. -Solu-Medrol 125 mg IV 1 time dose followed by prednisone 50 mg daily starting tomorrow for 5 days. -PT eval and rec SNF currently -spoke with Dr. Mayo ortho spine surgeon who will consult, recommended NPO midnight in case of surgery needed 2. Concern with previously UTI that was not treated. Repeat UA negative. 3. Type 2 diabetes. -A1c 11.7% -start lantus 15u nightly and med dose SSI 4. Hyperlipidemia history. -LDL significantly elevated at 220 -start lipitor 20mg nightly 5. Hypertension. -Maintain patient's regular medication and follow. COVID tests: Negative. Code status: Full code DVT prophylaxis: Enoxaparin 40 mg subQ daily PPI prophylaxis: Pantoprazole 40 mg daily Surrogate decision maker: Boyfriend, Kamran Gordon Dispo: Pending improvement in back pain and possible need for surgery. COVID-19 COVID-19 status: Negative Quality VTE Deep Vein Thrombosis/Pulmonary Embolism Present on Admission: No
[2022-09-06] MEDS: predniSONE 20 MG TABLET 50 MG PO (08:44)
[2022-09-06] MEDS: GABAPENTIN 100 MG CAPSULE PO (08:45)
[2022-09-06] MEDS: METFORMIN HCL 500 MG TABLET 1000 MG PO ×2 (08:46→16:35)
[2022-09-06 08:47] VITALS: BP 134/70
[2022-09-06] MEDS: lisinopriL 20 MG TABLET PO (08:47)
[2022-09-06] MEDS: INSULIN LISPRO 100 UNIT/ML 3ML VIAL SUBCUT ×4 (08:49→20:44)
[2022-09-06 08:55] VITALS: BP 134/70; PULSE 86; RESP 17; TEMP 36.4; O2SAT 97
--- NOTE | 2022-09-06 11:07 | CM.DANOTE ---
Addendum entered by Bailey Paez R.N. 09/06/22 14:16: P.T. notes completed, was sent to facilities. Spoke to Cesilia at [facility], she does have beds available. She will review, if she looks ok, will initiate auth. She will call back if she has any additional questions. Original Note: DCP: Case received, EMR reviewed and met with patient. Introduced self and role. Was able to obtain information regarding patient's baseline activity status, as well as her current living situation. DCP assessment completed with information currently available. Patient is a 72 year old female who admitted yesterday morning to the care of the hospitalist team. PCP: Dr. Floyd. Payer: confirmed: [facility]. Patient came to the hospital via ambulance secondary to having increased lower back discomfort. Notes indicate that patient has had multiple workups, including x-rays, CT scans, and MRI. Patient has history of disc disease. Patient was also diagnosed a couple of days ago with UTI. She had not been taking some prescriptions, according to notes, not getting out of bed, and nausea. Patient was diagnosed with lumbar degenerative disc with some stenosis, and UTI. Met with patient in her room. She is alert and oriented, laying in bed. Confirmed that she resides here in [place] with significant other, Kamran Gordon. Asked her if he can assist her at home, but stated, he has had hip surgery, he can only do so much. Mentioned skilled rehab, 'she is open to this. She has [facility], let her know that there are some facilities in their network, [facility], [facility], and [facility]. She wanted closer here in town, but will go wherever she needs for rehab. Updated physical therapist, Natalia, as soon as her note is in, will send to [facility], [facility], and [facility]. Asked Tammi mobile unit assistant, to fax over referrals as soon as notes for P.T. are in. Bailey Paez RN/Returned Case Inspector Discharge Planning/Care Management CM Discharge Assessment Start: 09/06/22 11:01 Freq: Status: Active Protocol: Document 09/06/22 11:02 (Rec: 09/06/22 11:07 [id number]) Discharge Planning Assessment Assigned Virtualization Engineer Bailey Jeannine, RN/Returned Case Inspector Advance Directives? No History Provided By Patient,Medical Record Prior Living Arrangements House Household Members significant other Type of transporation used prior to Relies on Others admit Independent with ADL's Yes Is patient alert and oriented? Yes Needs Assistance With Meal Prep,Home Chores / Shopping Caregiver for Another No DME Already Rented / Owned FWW / Walker Patient/Family Preference [facility] Facility Comment Patient indicated she is bed bound, can't mobilize at home . Barriers to Discharge No Comment Patient is OBS, but has [facility], as soon as P. T. notes are in, will fax over to [facility], [facility], and [facility] Discharge Plan [facility] Facility Referrals Initiated [facility] Additional Comment [facility], [facility], and [facility] Medicare Choice List Provided Yes SNF/HH Preference Wanted to be here in town, but let her know that [facility] is not in network of insurance. Comment Awaiting P.T. notes Whiteboard Updated in Patient Room with Yes name and ext. # of Virtualization Engineer Review Status In Process Next Review Type Continued Stay Review
--- NOTE | 2022-09-06 11:35 | PT.IIE ---
Current Diagnoses Other intervertebral disc degeneration, lumbar region (09/05/22) Medical History (Last Reviewed 09/05/22 @ 16:18 by Lupe Fuentes MD) Actinic keratosis Breast cancer screening Breast pain, left Chronic lower back pain Essential hypertension Hypercholesterolemia MCL sprain of right knee Seborrheic keratoses Skin tags, multiple acquired Type 2 diabetes mellitus Physical Therapy Inpatient Evaluation/Re-Eval M1 PT/OT-IP Prior Functional Status Start: 09/06/22 13:35 Freq: NEEDED Status: Active Protocol: Document 09/06/22 11:35 AB (Rec: 09/06/22 13:47 AB [id number]) Medical Review Prior Functional Status Medical History Reviewed Yes Communication able to make needs known Mobility and Gait pt stated her back pain has gotten worse for ~ 6 months now, up to the point where in she is unable to stand. prior to that, pt was independent with all mobilities and ambulation without AD Social History Household Members significant other Living Arrangements House Number of Floors (Floors) One Floor Number of Stairs To Enter/Railing? ramp to enter Home Environment Standard Height Toilet,Tub/ Shower,Ramp Home Equipment Four Wheel Walker,Hand Held Shower,Grab Bars In Shower Additional Social History Comment pt stated that spouse will not be able to assist her M2 PT-IP Current Condition Start: 09/06/22 13:35 Freq: NEEDED Status: Active Protocol: Document 09/06/22 11:35 AB (Rec: 09/06/22 13:47 AB [id number]) Physical Therapy Current Condition Current Condition Evaluation Date 09/06/22 Treatment Diagnosis intractable LBP; difficulty in walking Onset Date 09/05/22 M3 PT-IP Subjective Start: 09/06/22 13:35 Freq: NEEDED Status: Active Protocol: Document 09/06/22 11:35 AB (Rec: 09/06/22 13:47 AB [email or web address]) Subjective Physical Therapy Visit Type Type Initial Evaluation Visit Start Time 11:35 Visit Stop Time 11:55 Total Visit Minutes 20 Number of SEGMENT BLOCK LAYER Visits 0 Physical Therapy Visit Comments Patient Comments pt is agreeable to do PT Therapy Pain Assessment Pain When Pain Assessed At Rest Location Low Back Intensity 8 Scale Used Numeric (0 - 10) Pain Management Techniques Distraction,Modification of Treatment,Re-positioning, Timing of Activity with Medications M4 PT-IP Mobility and Gait Start: 09/06/22 13:35 Freq: NEEDED Status: Active Protocol: Document 09/06/22 11:35 AB (Rec: 09/06/22 13:47 AB [id number]) PT-Bed Mobility Assessment Rolling Type of Rolling Log Rolling Level of Assist Moderate Assistance Supine to Sit Supine to Sit Moderate Assistance PT-Transfer Assessment Sit to and From Stand Sit to and from Stand Maximum Assistance,1 Person Assistance,2 Person Assistance ,Use of Upper Extremities Equipment Transfer Assistive Device Front Wheeled Walker Orthotic/Prosthetic Devices or Brace: No Transfers Transfer Destination Chair Transfer Technique Stand Step Pivot Transfer Ability Level of Assist Maximum Assistance,1 Person Assistance,Use of Upper Extremities Comments Mobility Comments educated pt on back precautions. pt completed log roll bed mobiltiy supine to sit mod A and max cues. pt able to sit on EOB CGA. c/o increase back pain. nurse in room and provided other pain meds. completed sit to stand max A x 1-2 and max cues and step transfer to chair using FWW max A and max cues. pt refused to ambulate due to c/o increase back pain but agreed to sit up on the chair for lunch. positioned pt on the chair. call light and table placed within reach. pt refused ice packs. PT-Balance Assessment Sitting Balance and Reactions Static Sitting Balance Ability Good Dynamic Sitting Balance Ability Fair Standing Balance and Reactions Static Standing Balance Ability Poor Dynamic Standing Balance Ability Poor Device Used FWW M5 PT-IP Objective Assessments Start: 09/06/22 13:35 Freq: NEEDED Status: Active Protocol: Document 09/06/22 11:35 AB (Rec: 09/06/22 13:47 AB [id number]) Orientation Orientation/Cognition Level of Alertness Alert Orientation Name,Place,Situation Language Function Ability Hard of Hearing Safety Awareness Decreased Safety Awareness Memory Description Short Term Impaired Gross Range of Motion Lower Extremity ROM Assessment Within Functional Limits Strength Lower Extremity Strength Assessment Bilaterally Impaired Comments Strength Comments RLE: 3+/5 LLE: 3/5 Coordination Assessment Gross Coordination Gross Coordination WNL Sensation Assessment Sensation Gross Sensation WNL Muscle Tone Muscle Tone WNL Yes M6 PT-IP Treatment Start: 09/06/22 13:35 Freq: NEEDED Status: Active Protocol: Document 09/06/22 11:35 AB (Rec: 09/06/22 13:47 AB [email or web address]) Physical Therapy Treatment Education Education Provided Precautions,Safety M7 PT-IP Assessment and Plan Start: 09/06/22 13:35 Freq: NEEDED Status: Active Protocol: Document 09/06/22 11:35 AB (Rec: 09/06/22 13:47 AB [id number]) PT Summary Assessment and Plan Potential Rehabilitation Potential Fair Status of Condition at Evaluation Evolving Summary Impairments Pain,ROM,Strength,Balance, Coordination,Sensation,Tone, Cognition,Bed Mobility, Transfers,Gait,Activity Tolerance Assessment Summary Pt stated that she has been to the ED ~ 4x due to back pain. pt. presents with decrease mobility due to back pain and unable to manage at home. pt requiring max A at this time and only completed transfer using FWW and unable to ambulate due to c/o increase back pain. pt will require SNF rehab at this time to improve overall mobility. pt stated that her spouse will not be able to assist her and she needs to be able to mobility independently. Goals Bed Mobility Goal Standby Assistance Transfer Goal Standby Assistance,Front Wheeled Walker Gait Goal Standby Assistance,Front Wheel Walker Gait Distance 200 Other Goals improve transfers and ambulation using 4WW SBA 250 ft Frequency of Treatment Frequency Of Treatment Once a Day Treatment Plan Physical Therapy Treatment Plan Bed Mobility Training,Transfer Training,Gait Training, Therapeutic Exercise,Balance Retraining,Discharge Planning, Hot or Cold Pack,Neuromuscular Re-ed,Coordination Retraining ,Manual Therapy Precautions Lumbar Precautions Log Roll,No Twisting,Limit Bending,Lifting Restriction of 10 lbs Other Precautions falls Recommendations To Nursing Amount of Assist Needed 2 Person Assist Discharge Recommendations PT Discharge Recommendations SNF Rehab Equipment Needed for Home Before FWW if pt goes home and not Discharge safe with 4WW Transportation Needs at Discharge Wheelchair/Cabulance
[2022-09-06] MEDS: OXYCODONE IR 10 MG TABLET PO ×3 (11:46→22:39)
[2022-09-06] MEDS: CYCLOBENZAPRINE 10 MG TABLET 5 MG PO (11:49)
[2022-09-06] MEDS: KETOROLAC 30 MG/ML VIAL IV ×2 (15:31→22:35)
[2022-09-06] MEDS: GABAPENTIN 100 MG CAPSULE 300 MG PO (15:31)
[2022-09-06] MEDS: LIDOCAINE PATCH 1 EACH ADH..PATCH TOP (16:35)
--- NOTE | 2022-09-06 16:43 | OT.IPNOTE ---
Pt in too much pain at this time and not wanting to get up at this time. Pt now saying her foot feels numb. To check on her tomorrow.
[2022-09-06 19:00] VITALS: BP 138/74; PULSE 101; RESP 18; TEMP 36.5; O2SAT 96
[2022-09-06] MEDS: INSULIN GLARGINE 100 UNIT/ML 3ML PEN 15 UNIT SUBCUT (20:42)
[2022-09-06] MEDS: TRAZODONE 50 MG TABLET 25 MG PO (20:45)
[2022-09-06] MEDS: GABAPENTIN 300 MG CAPSULE PO (20:46)
[2022-09-06] MEDS: ATORVASTATIN 20 MG TABLET PO (20:46)
[2022-09-06] MEDS: SODIUM CHLORIDE 0.9% FLUSH 10 ML IV (22:35)
[2022-09-07] VITALS (22 sets, daily range): BP systolic 111–150; BP diastolic 59–83; PULSE 77–102; RESP 13–19; TEMP 36.1–36.9; O2SAT 91–98; BMI 24.7
[2022-09-07] MEDS: KETOROLAC 30 MG/ML VIAL IV ×2 (03:54→09:13)
--- NOTE | 2022-09-07 07:22 | P.PN_ITS ---
Subjective Subjective Interval history: Dr. Mayo evaluated patient and will take for spinal surgery today. Patient still in pain. Exam Vital Signs (past 8 hours): Oxygen Delivery Method Room Air Oxygen Flow Rate 0 Narrative Exam Narrative: General: Alert oriented and cooperative. Appears to be in pain. HEENT: Head is normocephalic. Trachea is midline. No palpable neck nodes. Neck is supple. Cardiovascular: Heart sounds S1 and S2 with no extra sounds or murmurs. Noticed tachycardia. Respiratory: Adequate air entry throughout the lung rivas no wheezes or c rackles. Normal expansion of the chest. Gastrointestinal: Abdomen is soft. Nontender. Bowel sounds normal Musculoskeletal: Tenderness of the low back in particular the left SI joint. Decreased range of motion lumbar back pain. Able to move all extremities normally. Neuro: Placed straight leg raising at 45? left side. Normal sensation of all extremities. Skin: No new lesions or rashes. Psych: Normal mood and affect. Objective Labs 09/07/22 07:39 09/07/22 07:39 [facility] Medical History Actinic keratosis Breast cancer screening Breast pain, left Chronic lower back pain Essential hypertension Hypercholesterolemia MCL sprain of right knee Seborrheic keratoses Skin tags, multiple acquired Type 2 diabetes mellitus Social History household members: significant other Smoking Status: Former smoker Assessment & Plan Assessment & Plan narrative: 1. Acute herniated disc of L5-S1 causing significant lumbar pain. -Pain medications include Tylenol, IV Dilaudid, Oxy and Toradol. -gabapentin has been ordered. -Solu-Medrol 125 mg IV 1 time dose followed by prednisone 50 mg daily starting tomorrow for 5 days. -PT eval and rec SNF currently -spoke with Dr. Mayo ortho spine surgeon who will take for surgery on 09/07 2. Concern with previously UTI that was not treated. -Repeat UA negative. 3. Type 2 diabetes. -A1c 11.7% -start lantus 15u nightly then increased to 20 units, and med dose SSI 4. Hyperlipidemia history. -LDL significantly elevated at 220 -started lipitor 20mg nightly 5. Hypertension. -Maintain patient's regular medication and follow. COVID tests: Negative. Code status: Full code DVT prophylaxis: Enoxaparin 40 mg subQ daily, held for surg PPI prophylaxis: Pantoprazole 40 mg daily Surrogate decision maker: Boyfrtaina Kamran Heidi Dispo: Pending recover from back surgery on 09/07. COVID-19 COVID-19 status: Negative Quality VTE Deep Vein Thrombosis/Pulmonary Embolism Present on Admission: No
[2022-09-07 07:49] LABS: Add Manual Diff / Slide Review NO; Basophils Absolute Auto 0 /uL (0-100); Basophils Percent Auto 0.1 % (0-2); Eosinophils Absolute Auto 0 /uL (0-450); Hematocrit 46.1 % (36-46); Hemoglobin 15.8 g/dL (12.0-16.0); Lymphocytes Absolute Auto 1100 /uL (1100-4500); Lymphocytes Percent Auto 5.9 % (25-40); Mean Corpuscular HGB Conc 34.2 % (30-36); Mean Corpuscular Hemoglobin 28.7 PG (26-34); Monocytes Absolute Auto 1500 /uL (0-900); Neutrophils Absolute Auto 15900 /uL (1500-7000); Platelet Count 298 X10^3/uL (150-400); Red Blood Cell Count 5.48 X10^6/uL (4.0-5.2); Red Cell Distribution Width 13.9 % (11.6-14.8); White Blood Cell Count 18.5 X10^3/uL (4.5-11.0)
[2022-09-07 08:03] LABS: BUN Creatinine Ratio 38.7 (6-22); Blood Urea Nitrogen 48 mg/dL (7-17); Calcium 9.4 mg/dL (8.4-10.2); Carbon Dioxide 21 mmol/L (22-32); Chloride 102 mmol/L (98-107); Estimated Glomerular Filt Rate 47 mL/min (>60); Glucose 288 mg/dL (80-110); HEMOLYSIS < 15 (0-50); Potassium 4.6 mmol/L (3.4-5.1); Sodium 130 mmol/L (137-145)
[2022-09-07] MEDS: SODIUM CHLORIDE 0.9% FLUSH 10 ML IV (08:19)
[2022-09-07] MEDS: SODIUM CHLORIDE 0.9% 1,000 ML 100 ML IV (08:23)
--- NOTE | 2022-09-07 08:49 | P.CONS_ITS ---
History of Present Illness Consult details Date Patient Seen: 09/07/22 Time Patient Seen: 08:49 Chief complaint: Back Pain left leg pain Requesting provider: Umer Powell Narrative: Ms. Whitaker is here with worsening left hip and leg pain that is constant, sharp and severe on and off for the last 6 months. She presented to ER 4 times d ue to her severe pain. She had emergent MRI which showed large far lateral extruded disc at L5-S1 level causing severe foramen stenosis and severe nerve root compression. She failed over 3 months of conservative care including medications, home exercise program, oral and IV steroids, pain medication, NSAIDs with severe constant pain that is limiting her ability to perform activities of daily livin g. Meds Home Medications and Allergies Home Medications Medication Instructions Recorded Confirmed Type lancets 33 gauge (BD Ultra Fine #100 ea 09/02/19 09/06/22 Rx Lancets) Parking Permit... #1 ea 03/22/22 09/06/22 Rx metformin 500 mg tablet 1,000 mg PO BIDWMEAL #360 tabs 04/05/22 09/05/22 Rx blood sugar diagnostic (Accu-Chek ##100 05/04/22 09/06/22 Rx Makeda Plus test strips) blood-glucose meter #1 ea 05/17/22 09/06/22 Rx empagliflozin 25 mg tablet 25 mg PO DAILY 09/05/22 09/05/22 History (Jardiance) lisinopril 20 mg tablet 20 mg PO DAILY 09/05/22 09/05/22 History Allergies Allergy/AdvReac Type Severity Reaction Status Date / Time bee venom protein (honey bee) Allergy Severe SOB and Verified 09/05/22 11:09 swelling codeine [CODEINE] Allergy Intermediate NAUSEA Verified 09/05/22 11:09 Sulfa (Sulfonamide Allergy Unknown PATIENT Verified 09/05/22 11:09 Antibiotics) CAN'T [SULFA (SULFONAMIDE REMEMBER ANTIBIOTICS)] Review of Systems Review of Systems ROS: Yes All systems reviewed with the patient and are negative except as otherwise documented Exam Vital Signs (past 8 hours): - 09/07/22 07:00 Temperature 96.9 F L Pulse Rate 87 Respiratory Rate 16 Blood Pressure 115/68 Pulse Oximetry 96 Oxygen Flow Rate 0 Oxygen Delivery Method Room Air Oxygen Flow Rate 0 Back/Spine/Pelvis Other: Severe back pain when attempt to sit up and move while in bed. Currently bed rest laying with left leg elevated with pillow. Neuro Other: + straight leg raise to LLE, sensibility decreased to left L5, S1 dermatome, motor strength 4-/5 in left EHL and gastroc. Objective Labs 09/07/22 07:39 09/07/22 07:39 Labs: Laboratory Results - last 24 hr 09/07/22 09/07/22 07:39 07:39 WBC 18.5 H RBC 5.48 H Hgb 15.8 Hct 46.1 H MCV 84.0 MCH 28.7 MCHC 34.2 RDW 13.9 Plt Count 298 Neut % (Auto) 86.0 H Lymph % (Auto) 5.9 L Bremer % (Auto) 8.0 Eos % (Auto) 0.0 L Baso % (Auto) 0.1 Neut # (Auto) 49322 H Lymph # (Auto) 1100 Bremer # (Auto) 1500 H Eos # (Auto) 0 Baso # (Auto) 0 Sodium 130 L Potassium 4.6 Chloride 102 Carbon Dioxide 21 L BUN 48 H Creatinine 1.24 H Estimated GFR 47 L BUN/Creatinine Ratio 38.7 H Glucose 288 H Calcium 9.4 PFSH Medical History Actinic keratosis Breast cancer screening Breast pain, left Chronic lower back pain Essential hypertension Hypercholesterolemia MCL sprain of right knee Seborrheic keratoses Skin tags, multiple acquired Type 2 diabetes mellitus Social History household members: significant other Tobacco & Substance Use Smoking Status: Former smoker Assessment & Plan Assessment & Plan narrative: Ms. Whitaker is a 72 yo F with severe back pain and left leg pain and progressive weakness over the last 6 months. She has been to ER 4 times due to her severe uncontrolled pain and progressive leg weakness. She is recently admitted to inpatient hospital for pain control and orthopedic service has been consulted. Her emergency MRI showed large L5-S1 far lateral extruded disc on the left causing severe L5-S1 left foramen stenosis with nerve root compression. She has failed conservative care for over 3 months with worsening symptoms. She is currently bedridden and unable to sit or stand due to severe radiating pain into her left hip/leg with any movement. She did not respond to IV steroids given after she was admitted to the hospital with 10/10 severe constant pain in her back and her left leg and hip. She has constant numbness, progressive weakness to her left leg and inability to move in bed due to severe pain. She will benefit from surgical treatment involving L5-S1 decompression in order to relieve pressure from the severely impinged nerve roots. Due to the nature of her far lateral extruded disc, she will require a total facetectomy at L5-S1 on the left in order to access and remove the disc, which will render her L5-S1 grossly unstable and require a fusion surgery at the same time. Risks for surgery include but not limited to bleeding, infection, nerve/dura/bladder/bowel/blood vessel injury, need for additional procedure, persisting pain, even . Patient understands and would like to proceed with surgery radhika. Patient is added on to surgery schedule today as an emergency surgery. Patient will be kept NPO in preparation for surgery under general anesthesia.
--- NOTE | 2022-09-07 08:53 | CM.DPC ---
Addendum entered by Bailey Paez R.N. 09/07/22 12:15: Just found out earlier today that patient will be having lumbar surgery today, time unknown. Called Cesilia at [facility], since she is working on [employer], and updated her, and also responded to her email. She is now aware, and can initiate the auth starting tomorrow. Original Note: DCP Cont: Nguyen at [facility] left a message regarding referral sent to her, won't be able to accept due to concerns about her discharge plan. Cesilia at [facility] is accepting, she has submitted auth for [facility], did state the system is currently down, but will continue to try. Was informed today that there is a possibility that patient could have consult with Dr. Mayo for possible surgery. Will discuss further in team rounds. P: DCP to continue to follow. Plan is [facility] at this time, pending auth, and PASSR completed. Will see if she is to be having surgery, if so, will update Cesilia at [facility]. Bailey Paez RN/Photo Editor
[2022-09-07] MEDS: predniSONE 20 MG TABLET 50 MG PO (09:13)
[2022-09-07] MEDS: ACETAMINOPHEN 325 MG TABLET 650 MG PO (09:13)
[2022-09-07] MEDS: GABAPENTIN 100 MG CAPSULE 300 MG PO (09:14)
[2022-09-07] MEDS: LIDOCAINE PATCH 1 EACH ADH..PATCH TOP (09:14)
--- NOTE | 2022-09-07 09:17 | OT.IPNOTE ---
Pt looking to have surgery at this time discharge OT eval orders.
[2022-09-07] MEDS: INSULIN REGULAR 100 UNIT/ML 3 ML VIAL SUBCUT (09:22)
--- NOTE | 2022-09-07 11:27 | PT-IP ANOTE ---
Patient is planned for surgery today. Will d/c orders; please reorder PT consult as indicated post-op.
[2022-09-07] MEDS: HYDROMORPHONE 1 MG INJ IV (12:17)
--- NOTE | 2022-09-07 15:27 | PC.NURSE ---
Pt to OR via bed for back surgery with Dr. Mayo.
[2022-09-07] MEDS: LACTATED RINGERS 1,000 ML 100 ML IV ×2 (15:59→17:44)
[2022-09-07] MEDS: CEFAZOLIN 2 GM/100 ML PREMIX 100 ML IV (17:00)
--- NOTE | 2022-09-07 17:21 | SUR.OPER ---
Prone on spine table, head in foam head support, padded chest and pelvic supports, gel pad at knees, lower legs supported by pillows; nipples, genitalia and toes free of pressure, arms secured on foam padded arm boards at <90 degrees abduction. Tape over blanket at thigh secured to table. Gel pad placed between heels.
--- NOTE | 2022-09-07 17:21 | SUR.OPER ---
IN Operating Room, after moving patient from acute care bed to Spine table, a gold colored and jewel pendant without a chain was found on the floor beneath patient. This item was placed in a specimen cup and a patient ID label was placed on cup and brought with patient to PACU.
[2022-09-07] MEDS: BUPIVACAINE 0.25% (PF) 30 ML, EPINEPHrine 0.15 MG INJ (17:35)
[2022-09-07] MEDS: BUPIVACAINE LIPOSOME 266 MG/20 ML VIAL INJ (18:35)
--- NOTE | 2022-09-07 18:39 | DI.RAD.S_ITS ---
PROCEDURE: XR LUMBAR SPINE 2-3V INDICATIONS: L5-S1 TLIF TECHNIQUE: 2 intraoperative views of the lumbar spine were acquired. COMPARISON: [facility], FRANCY, XR LUMBAR SPINE 2-3V, 08/16/2022, 14:49. FINDINGS: Posterior fusion hardware at L5-S1. Interbody device at L5-S1. IMPRESSION: Intraoperative imaging obtained during lumbosacral fusion. Dictated by: Ria Barr M.D. on 09/07/2022 at 18:50 Approved by: Ria Barr M.D. on 09/07/2022 at 18:50
--- NOTE | 2022-09-07 18:45 | P.OP_ITS ---
Operative Date/Time/Diagnoses Date of procedure: 09/07/22 Time of procedure: 16:00 Pre-op diagnosis: 1. L5-S1 far lateral disc extrusion 2. L5-S1 foramen stenosis with radiculopathy Post-op diagnosis: same Procedure & Clinicians Procedure: 1. L5-S1 Postero-lateral and posterior interbody fusion 2. L5-S1 interbody cage placement. 3. L5-S1 decompressive laminectomy with bilateral facetecomies 4. L5-S1 Posterior non-segmental instrumentation 5. Union of bone marrow from iliac crest 6. Utilization of microsurgical technique and operating microscope Same procedure as scheduled: Yes Indications: Patient has been having chronic back pain and worsening lumbar radiculopathy for the last 6 month. Patient failed multiple conservative management with worsening pain weakness and numbness in her lower extremity that caused 4 ER visit and hospital admission due to uncontrolled pain and inability to walk. Patient has been having difficulty performing activity of daily living. After discussing risks benefits of treatment options, patient elected proceed with surgery. Patient was scheduled and taken to OR for urgent surgery. Surgeon: Codey Mayo Nutrition Assistant: Peg García Click Yes if Unassisted: No Anesthesia Type: General Operative Notes Closure Type: primary Specimen(s): none sent Prosthetic devices, grafts, tissues, transplants, or devices: Globus Revolve screws, Rise cage Estimated Blood Loss (mL): 20 Blood products transfused: none Procedure in detail: Patient was seen in the preoperative area. Risks and benefits of the surgery was discussed with the patient. Informed consent was obtained from the patient and placed in the chart. Surgical site was marked. Patient was taken to the operative room. General anesthesia was administered. Prophylactic antibiotic was given to the patient less than 30 min before the incision was made. Patient was placed into a prone position on the Glenn table. Patient's back was then prepped and draped in the sterile fashion. Time-out was performed at this time. Using AP and lateral C-arm imaging the interval between L5-S1 was identified and marked on patient's back. A 2 inch incision 2 in from midline was made on the left side first. The fascia was incised in line with skin incision. Globus MARS retractors was placed inside the incision and docked onto the L5 lamina. Using microsurgical technique and operating microscope, a L5 laminectomy and L5-S1 facetectomy was performed using a Kerrison rongeur. After the facetectomy was completed, there is several pieces of large extruded disc directly anterior to the facet joint causing severe neural foramen stenosis as well as severe impingement of the left L5 nerve root. The nerve root appears to be flattened due to the severe compression. The far lateral nature of the disc extrusion makes it impossible to remove the disc fragment without removing the entire L5- S1 facet on the left side. After the facetectomy and diskectomy was completed. The L5-S1 was found to be grossly unstable due to the facetectomy and laminectomy. Decision at this time was to perform a fusion procedure in order to stabilize the unstable L5-S1 level. The disc space at L5-S1 was identified. And a total diskectomy was performed at L5-S1 level. The endplates were decorticated using a rasp and shaver. The total diskectomy and decortication was performed at L5-S1 level in order to to accomplish a L5-S1 fusion. The local bone from the laminectomy and facetectomy was saved for local bone grafting. After the total diskectomy and decortication was completed, Trifecta bone graft material was combined with local bone that was harvested earlier. At this time, a separate skin is incision was made over the iliac crest. A Jamshidi needle was inserted into the iliac crest through a separate skin incision. 5 cc of bone marrow aspiration was obtained through the separate skin incision using a Jamshidi needle from the iliac crest. The bone marrow aspiration was combined with local bone and the Trifecta bone grafting material. The bone grafting material was placed into the L5-S1 interbody space along with a expandable cage. The cage was expanded to its maximum height using the torque limiting screwdriver. At this time a mirror image incision was made on the right side. The fascia was incised in line with the skin incision. Globus MARS retractor was inserted and docked onto the L5-S1 posterolateral gutter. Using the power drill, posterior- lateral decortication was performed at L5-S1 level until bleeding cortical bone was identified. The remaining bone grafting material was placed into the right posterior lateral gutter he order to accomplish posterolateral fusion at the L5- S1 level. Using the double C-arm technique, pedicle screws were placed into the L5 and S1 pedicles bilaterally. This was done by placing the Jamshidi needle into the pedicles, then placing the guidewires over the Jamshidi needle, and finally placing the cannulated screws over the guidewires bilaterally. After the pedicle screws were placed, 2 titanium rods was locked into the heads of the pedicle screws using locking caps and torque limiting screwdriver. After all the hardware was placed, and confirmed with AP and lateral C-arm imaging, the wound was then irrigated with sterile normal saline and packed with Ray-Edis gauze for 3 min to accomplish hemostasis. After the gauze was removed the deep fascia was closed with #1 Vicryl suture. The subcutaneous layer was closed with 2-0 Vicryl. The skin was closed with skin soham. Patient tolerated the procedure well. There were no complications. Complications: none Post-operative Condition: stable Disposition: PACU Plan for aftercare: admit to inpatient hospital
[2022-09-07] MEDS: OXYCODONE IR 5 MG TABLET PO ×2 (19:21→19:53)
--- NOTE | 2022-09-07 19:41 | SUR.PHASEI ---
Kamran, SO called and updated. Will come to inpatient room soon. Angela Millan RN
[2022-09-07] MEDS: HYDROMORPHONE 0.5 MG INJ IV (20:56)
[2022-09-07] MEDS: LACTATED RINGERS 1,000 ML 125 ML IV (20:57)
[2022-09-07] MEDS: SENNOSIDES 8.6 MG TABLET 17.2 MG PO (20:57)
[2022-09-07] MEDS: hydrOXYzine pamoate 25 MG CAPSULE PO (20:58)
[2022-09-07] MEDS: DOCUSATE 100 MG CAPSULE PO (22:08)
[2022-09-08] MEDS: CEFAZOLIN 2 GM/100 ML PREMIX 100 ML IV ×2 (00:22→08:57)
[2022-09-08] MEDS: OXYCODONE IR 10 MG TABLET PO ×3 (00:23→20:52)
[2022-09-08] MEDS: HYDROMORPHONE 0.5 MG INJ IV ×3 (02:47→21:51)
[2022-09-08] MEDS: hydrOXYzine pamoate 25 MG CAPSULE PO ×2 (02:48→20:51)
[2022-09-08 02:56] VITALS: BP 132/63; PULSE 90; RESP 16; TEMP 36.8; O2SAT 95
[2022-09-08] MEDS: ACETAMINOPHEN 325 MG TABLET 650 MG PO ×3 (05:15→20:52)
[2022-09-08 05:16] LABS: Add Manual Diff / Slide Review NO; Basophils Absolute Auto 0 /uL (0-100); Basophils Percent Auto 0.1 % (0-2); Eosinophils Absolute Auto 0 /uL (0-450); Hematocrit 40.5 % (36-46); Hemoglobin 13.6 g/dL (12.0-16.0); Lymphocytes Absolute Auto 600 /uL (1100-4500); Lymphocytes Percent Auto 3.2 % (25-40); Mean Corpuscular HGB Conc 33.5 % (30-36); Mean Corpuscular Hemoglobin 28.3 PG (26-34); Mean Corpuscular Volume 84.4 fL (80-100); Monocytes Absolute Auto 800 /uL (0-900); Monocytes Percent Auto 4.5 % (3-14); Neutrophils Absolute Auto 16500 /uL (1500-7000); Neutrophils Percent Auto 92.2 % (50-75); Platelet Count 264 X10^3/uL (150-400); Red Cell Distribution Width 14.2 % (11.6-14.8); White Blood Cell Count 17.9 X10^3/uL (4.5-11.0)
[2022-09-08] MEDS: LACTATED RINGERS 1,000 ML 125 ML IV ×3 (05:20→21:56)
[2022-09-08 05:27] LABS: BUN Creatinine Ratio 46.6 (6-22); Blood Urea Nitrogen 41 mg/dL (7-17); Calcium 8.7 mg/dL (8.4-10.2); Carbon Dioxide 24 mmol/L (22-32); Chloride 103 mmol/L (98-107); Estimated Glomerular Filt Rate > 60 mL/min (>60); Glucose 366 mg/dL (80-110); HEMOLYSIS < 15 (0-50); Potassium 4.8 mmol/L (3.4-5.1); Sodium 130 mmol/L (137-145)
[2022-09-08 08:05] VITALS: BP 130/69; PULSE 85; RESP 17; TEMP 36.3; O2SAT 94
[2022-09-08] MEDS: METFORMIN HCL 500 MG TABLET PO ×2 (08:56→16:32)
[2022-09-08] MEDS: DOCUSATE 100 MG CAPSULE PO ×2 (08:56→20:51)
--- NOTE | 2022-09-08 09:19 | CM.DPC ---
Addendum entered by Bailey Paez R.N. 09/08/22 15:13: [facility] [facility] called and stated that they could picker and packer patient at 1100 tomorrow. Called Cesilia at [facility] to let her know that they called this DC Tube Repairer for transport set up. She stated that they are supposed to go through her, but time is ok. She still has not yet received the insurance auth, she submitted everything. Stated, sometimes she could get it later in the day, will update this DC Tube Repairer. Addendum entered by Bailey Paez R.N. 09/08/22 13:37: Updated Cesilia at [facility] regarding surgery. Cesilia is putting in a new referral, since she had surgery, through her [facility]. Let her know that therapy orders will be faxed over as soon as they are done. Let therapy know that this is needed as soon as possible for the auth to be submitted. Cesilia stated that she would initiate the referral without the notes. Did receive the P.T. and O.t. notes. Faxed to Cesilia. Cesilia called back and submitted, she did indicate that it is going through [facility] for review. She did state that she has a 1400 opening with [facility] for tomorrow, but will see if she can move the time up to sooner. Should not need COVID test, since she just had surgery. Auth is still pending. Original Note: DCP Cont: Patient had her surgery yesterday at approximately 1800. Met with her briefly this morning. She was laying down, attempting to eat her breakfast. She confirmed with this DC Tube Repairer, she will need to go to a skilled facility. Let her know that [facility] has accepted, they are working on getting insurance auth. P: Patient will be going to [facility] once auth is obtained, and when she is medically stable. Will need to see if she can go via wheelchair versus BLS. Bailey Paez RN/[employer]
--- NOTE | 2022-09-08 10:48 | P.PN_ITS ---
Subjective Subjective Date Patient Seen: 09/08/22 Time Patient Seen: 10:48 Interval history: Patient is resting in bed this morning. She states she is not been able to sleep for the past few days due to her preoperative and postoperative pain. She notes that the medications have been working well. She denies chest pain, shortness breath, fever, chills, nausea, vomiting. She plans to discharge to a detention facility for rehabilitation. Exam Vital Signs (past 8 hours): - 09/08/22 02:56 09/08/22 08:05 09/08/22 07:00 Temperature 98.3 F 97.4 F L Pulse Rate 90 85 Respiratory Rate 16 17 Blood Pressure 132/63 130/69 Pulse Oximetry 95 94 Oxygen Delivery Method Room Air Oxygen Flow Rate 0 0 Oxygen Delivery Method Room Air Oxygen Flow Rate 0 Narrative Exam Narrative: Pleasant 72-year-old female. Awake, alert, and oriented. Intraoperative dressing clean, dry, and intact. Strength and sensation intact to bilateral lower extremities, except for slight decreased sensation to the lateral left calf. Objective Labs 09/08/22 04:55 09/08/22 04:55 Labs: Laboratory Results - last 24 hr 09/08/22 09/08/22 04:55 04:55 WBC 17.9 H RBC 4.80 Hgb 13.6 Hct 40.5 MCV 84.4 MCH 28.3 MCHC 33.5 RDW 14.2 Plt Count 264 Neut % (Auto) 92.2 H Lymph % (Auto) 3.2 L Real % (Auto) 4.5 Eos % (Auto) 0.0 L Baso % (Auto) 0.1 Neut # (Auto) 65836 H Lymph # (Auto) 600 L Real # (Auto) 800 Eos # (Auto) 0 Baso # (Auto) 0 Sodium 130 L Potassium 4.8 Chloride 103 Carbon Dioxide 24 BUN 41 H Creatinine 0.88 Estimated GFR > 60 BUN/Creatinine Ratio 46.6 H Glucose 366 H Calcium 8.7 PFSH Medical History Actinic keratosis Breast cancer screening Breast pain, left Chronic lower back pain Essential hypertension Hypercholesterolemia MCL sprain of right knee Seborrheic keratoses Skin tags, multiple acquired Type 2 diabetes mellitus Social History household members: significant other Smoking Status: Former smoker Assessment & Plan Post-op Postoperative Procedures: Procedures Operation Date: 09/07/22 16:15 Actual Procedure Side Surgeon p L5-S1 TLIF Codey Mayo MD Postoperative day: 1 Postoperative status: marginal pain control Postoperative status narrative: Patient is progressing as expected after 1 level TLIF yesterday. She complains of marginal pain control and trouble sleeping. Postoperative plan: routine post-op care Postoperative plan narrative: Continue multimodal pain regimen. Plan to work with physical therapy today, progress as tolerated. Patient will likely discharge to detention facility for further rehabilitation. Quality VTE Deep Vein Thrombosis/Pulmonary Embolism Present on Admission: No
--- NOTE | 2022-09-08 11:30 | PT.IIE ---
Current Diagnoses Other intervertebral disc degeneration, lumbar region (09/07/22) Surgery Performed Operation Date: 09/07/22 16:15 Actual Procedures p L5-S1 TLIF - Codey Mayo MD Medical History (Last Reviewed 09/08/22 @ 10:54 by Peg García PA-C) Actinic keratosis Breast cancer screening Breast pain, left Chronic lower back pain Essential hypertension Hypercholesterolemia MCL sprain of right knee Seborrheic keratoses Skin tags, multiple acquired Type 2 diabetes mellitus Physical Therapy Inpatient Evaluation/Re-Eval M1 PT/OT-IP Prior Functional Status Start: 09/06/22 13:35 Freq: NEEDED Status: Active Protocol: Document 09/08/22 11:30 AB (Rec: 09/08/22 13:13 AB [email or web address]) Medical Review Prior Functional Status Medical History Reviewed Yes Communication able to make needs known Mobility and Gait pt stated her back pain has gotten worse for ~ 6 months now, up to the point where in she is unable to stand. prior to that, pt was independent with all mobilities and ambulation without AD Prior Functional Level (Other details) pt initially admitted for intractable LBP. Pt s/p TLIF 09/07/22. Social History Household Members significant other Living Arrangements House Number of Floors (Floors) One Floor Number of Stairs To Enter/Railing? ramp to enter Home Environment Standard Height Toilet,Tub/ Shower,Ramp Home Equipment Four Wheel Walker,Hand Held Shower,Grab Bars In Shower Additional Social History Comment pt stated that spouse will not be able to assist her M2 PT-IP Current Condition Start: 09/06/22 13:35 Freq: NEEDED Status: Active Protocol: Document 09/08/22 11:30 AB (Rec: 09/08/22 13:13 AB [email or web address]) Physical Therapy Current Condition Current Condition Evaluation Date 09/08/22 Treatment Diagnosis s/p L5S1 TLIF; difficulty in walking Onset Date 09/05/22 M3 PT-IP Subjective Start: 09/06/22 13:35 Freq: NEEDED Status: Active Protocol: Document 09/08/22 11:30 AB (Rec: 09/08/22 13:13 AB [email or web address]) Subjective Physical Therapy Visit Type Type Initial Evaluation Visit Start Time 11:30 Visit Stop Time 12:00 Total Visit Minutes 30 Number of BOTTLE SELECTOR Visits 0 Physical Therapy Visit Comments Patient Comments agreeable to do PT Therapy Pain Assessment Pain When Pain Assessed During Mobility Pain Present Pain Present Pain Reported Location Low Back Intensity 3 Scale Used Numeric (0 - 10) Pain Management Techniques Distraction,Modification of Treatment,Re-positioning, Timing of Activity with Medications M4 PT-IP Mobility and Gait Start: 09/06/22 13:35 Freq: NEEDED Status: Active Protocol: Document 09/08/22 11:30 AB (Rec: 09/08/22 13:13 AB [email or web address]) PT-Bed Mobility Assessment Rolling Type of Rolling Log Rolling Level of Assist Moderate Assistance Supine to Sit Supine to Sit Moderate Assistance PT-Transfer Assessment Sit to and From Stand Sit to and from Stand Moderate Assistance,1 Person Assistance,Use of Upper Extremities Equipment Transfer Assistive Device Gait Belt,Front Wheeled Walker Orthotic/Prosthetic Devices or Brace: No Transfers Transfer Destination Chair Transfer Technique ambulated Transfer Ability Level of Assist Minimal Assistance,1 Person Assistance,Use of Upper Extremities Comments Mobility Comments educated pt on back precautions and log roll bed mobility. completed supine to sit mod A and max cues. able to sit on EOB SBA. completed sit to stand mod A and ambulated ~ 10 ft in room using FWW min A. pt agreed to sit on the chair. Pt found needing brief change and clean up. nurse came to assist. pt completed sit to stand from the chair mod A and was able to maintain standing using FWW CGA to min A while nurse assisted with hygiene care and brief management. positioned pt on the chair. call light and table placed within reach. Gait Assessment Gait Gait Assistance Required: Minimum Assistance Distance (Feet) 10 Able to Maintain Weight Bearing Status Yes During Gait Assistive Devices Assistive Device Gait Belt,Front Wheeled Walker Orthotic/Prosthetic Devices or Brace: No Gait Deviations General Gait Pattern Antalgic,Decreased Stride Length,Decreased Feet Clearance,Step-to Gait Factors Limiting Gait Function Factors Limiting Gait Function Decreased Activity Tolerance, Decreased Sensation,Decreased Strength,Limited Range of Motion,Pain,Poor Balance,Poor Safety Awareness PT-Balance Assessment Sitting Balance and Reactions Static Sitting Balance Ability Good Dynamic Sitting Balance Ability Good Standing Balance and Reactions Static Standing Balance Ability Fair Dynamic Standing Balance Ability Fair Device Used FWW M5 PT-IP Objective Assessments Start: 09/06/22 13:35 Freq: NEEDED Status: Active Protocol: Document 09/08/22 11:30 AB (Rec: 09/08/22 13:13 AB [email or web address]) Orientation Orientation/Cognition Level of Alertness Alert Orientation Name,Place,Situation Language Function Ability No Deficits Noted Safety Awareness Decreased Safety Awareness Memory Description Short Term Impaired Gross Range of Motion Lower Extremity ROM Assessment Within Functional Limits Strength Lower Extremity Strength Assessment Left Impaired Hip 3+/5 Knee 4-/5 Sensation Assessment Comments Sensation Comments c/o slight tingling on calves and feet Muscle Tone Muscle Tone WNL Yes M6 PT-IP Treatment Start: 09/06/22 13:35 Freq: NEEDED Status: Active Protocol: Document 09/08/22 11:30 AB (Rec: 09/08/22 13:13 AB [email or web address]) Physical Therapy Treatment Education Education Provided Precautions,Weight Bearing Status,Post-Op Packet,Safety M7 PT-IP Assessment and Plan Start: 09/06/22 13:35 Freq: NEEDED Status: Active Protocol: Document 09/08/22 11:30 AB (Rec: 09/08/22 13:13 AB [email or web address]) PT Summary Assessment and Plan Potential Rehabilitation Potential Fair Status of Condition at Evaluation Stable Summary Impairments Pain,ROM,Strength,Balance, Coordination,Sensation,Tone, Cognition,Bed Mobility, Transfers,Gait,Activity Tolerance Assessment Summary pt requiring mod A for bed mobility and sit to stand and ambulation using FWW min A but only tolerated ~ 10 ft. pt will require SNF rehab to improve overall strength and mobility. Goals Bed Mobility Goal Standby Assistance Transfer Goal Standby Assistance,Front Wheeled Walker Gait Goal Standby Assistance,Front Wheel Walker Gait Distance 150 Days to Meet Goals 10 Frequency of Treatment Frequency Of Treatment Twice a Day Treatment Plan Physical Therapy Treatment Plan Bed Mobility Training,Transfer Training,Gait Training, Therapeutic Exercise,Balance Retraining,Post Op Education, Discharge Planning,Hot or Cold Pack,Neuromuscular Re-ed, Coordination Retraining,Manual Therapy Precautions Lumbar Precautions Log Roll,No Twisting,Limit Bending,Lifting Restriction of 10 lbs,Gait Belt above Incisional Area Recommendations To Nursing Amount of Assist Needed 1 Person Assist Discharge Recommendations PT Discharge Recommendations SNF Rehab Transportation Needs at Discharge Private Vehicle,Wheelchair/ Cabulance
--- NOTE | 2022-09-08 12:23 | OT.IP.EVAL ---
Current Diagnoses Other intervertebral disc degeneration, lumbar region (09/07/22) Surgery Performed Operation Date: 09/07/22 16:15 Actual Procedures p L5-S1 TLIF - Codey Mayo MD Past Medical History (Last Reviewed 09/08/22 @ 10:54 by Peg García PA-C) Actinic keratosis Breast cancer screening Breast pain, left Chronic lower back pain Essential hypertension Hypercholesterolemia MCL sprain of right knee Seborrheic keratoses Skin tags, multiple acquired Type 2 diabetes mellitus Occupational Therapy Inpatient Evaluation/Re-Eval M1 PT/OT-IP Prior Functional Status Start: 09/06/22 13:35 Freq: NEEDED Status: Active Protocol: Document 09/08/22 13:05 CGR (Rec: 09/08/22 13:29 CGR [id number]) Medical Review Prior Functional Status Medical History Reviewed Yes Communication able to make needs known Mobility and Gait pt stated her back pain has gotten worse for ~ 6 months now, up to the point where in she is unable to stand. prior to that, pt was independent with all mobilities and ambulation without AD Activities of Daily Living and IADL's Pt was IND at baseline. Pt has been working on moving, packing and moving boxes. Social History Household Members significant other Living Arrangements House Number of Floors (Floors) One Floor Number of Stairs To Enter/Railing? ramp to enter Home Environment Standard Height Toilet,Tub/ Shower,Ramp Home Equipment Four Wheel Walker,Hand Held Shower,Grab Bars In Shower Additional Social History Comment pt stated that spouse will not be able to assist her M2 OT-IP Current Condition Start: 09/08/22 13:05 Freq: Status: Active Protocol: Document 09/08/22 13:05 CGR (Rec: 09/08/22 13:29 CGR [id number]) Occupational Therapy Current Condition Current Condition Evaluation Date 09/08/22 Treatment Diagnosis Acute herniated disc L5-S1 Diagnosis Onset Date 09/07/22 Post Operative Precautions Lumbar Precautions Log Roll,No Twisting,Limit Bending,Lifting Restriction of 10 lbs,Gait Belt above Incisional Area M3 OT- IP Subjective and Pain Start: 09/08/22 13:05 Freq: Status: Active Protocol: Document 09/08/22 13:05 CGR (Rec: 09/08/22 13:29 CGR [id number]) OT- Subjective Occupational Therapy Visit Type Type Initial Evaluation Visit Start Time 12:10 Visit Stop Time 12:23 Total Visit Minutes 13 Notes Pt just got lunch but is willing to participate in a quick OT session. OT Pain Assessment Pain When Pain Assessed At Rest Pain Present Pain Present Pain Reported Location Left Hip Intensity 3 Scale Used Numeric (0 - 10) Management Techniques Distraction,Modification of Treatment,Re-positioning Low Back Intensity 3 Scale Used Numeric (0 - 10) Management Techniques Distraction,Modification of Treatment,Re-positioning M4 OT- IP ADL's Start: 09/08/22 13:05 Freq: Status: Active Protocol: Document 09/08/22 13:05 CGR (Rec: 09/08/22 13:29 R [id number]) OT [id number]-[id number] General Evaluation Self-Feeding Ability Independent Comments OT Self-Feeding Comments Pt eating lunch OT ADL-Grooming Comments OT Grooming Comments not performed OT ADL-Oral Care Comments Oral Care Comments not performed OT ADL-Dressing General Eval Lower Body Dressing Ability Total Assistance Areas Needing Assistance Underpants/Brief,Socks Comments OT Dressing Comments seated on toielt OT ADL-Toileting General Evaluation Toileting Ability Minimal Assistance Areas Needing Assistance Manage Clothing Comments OT Toileting Comments Pt states need to urinate upon standing. Pt states that she leaked on the way to the toilet. Clean brief obtained and pt needed max a for LB dressing without AD. Pt needed min a for pulling down and up brief. OT ADL-Bathing Comments OT Bathing Comments not performed M5 OT- IP IADL's Start: 09/08/22 13:05 Freq: Status: Active Protocol: Document 09/08/22 13:05 CGR (Rec: 09/08/22 13:29 R [id number]) OT-Instrumental Activities of Daily Living Deficits IADL Deficits Identified Deficits Home Safety Awareness Awareness of Need for Assistance at Home Decreased Awareness Ability to Problem Solve Emergency Unable to Problem Solve Situations Medication Management Medication Management No Deficits Identified Money Management Money Management No Deficits Identified Meal Preparation Meal Preparation Caregiver Provides Assist Potato Spotter Potato Spotter Caregiver Provides Assist Driving Driving Concerns Identified Regarding Safety M6 OT- IP Functional Cognition Start: 09/08/22 13:05 Freq: Status: Active Protocol: Document 09/08/22 13:05 CGR (Rec: 09/08/22 13:29 R [id number]) Cognitive Factors Limiting Selfcare Function Cognitive Ability Level of Alertness Alert Patient Orientation Name,Age,Birthday,Month,Date, Year,Day of Week,Place, Situation Attention Span Ability Capable of Focused Attention, Capable of Sustained Attention OT- Vision and Hearing OT- Hearing Assessment OT- Hearing Assessment WFL OT- Vision Assessment Visual Acuity Glasses For Reading Visual Attentiveness WFL Occular Pursuits WFL Visual Convergence WFL M7 OT- IP Mobility and Balance Start: 09/08/22 13:05 Freq: Status: Active Protocol: Document 09/08/22 13:05 CGR (Rec: 09/08/22 13:29 CGR [id number]) OT-Transfer Assessment Sit to and From Stand Sit to and from Stand Minimal Assistance,Moderate Assistance Transfers Transfer Ability Minimal Assistance Technique Transfer Destination Chair,Toilet Transfer Technique Stand Step Pivot Devices Transfer Assistive Devices Gait Belt,Front Wheeled Walker Comments Mobility Comments Pt needs physical assist for sit to stand and verbal cues for use of walker. OT- Balance Assessment Sitting Balance and Reactions Static Sitting Balance Ability Good Dynamic Sitting Balance Ability Fair M8 OT- IP Objective Assessments Start: 09/08/22 13:05 Freq: Status: Active Protocol: Document 09/08/22 13:05 CGR (Rec: 09/08/22 13:29 CGR [id number]) OT Gross Range of Motion Upper Extremity Range of Motion Assessment Within Functional Limits OT Strength Upper Extremity Strength Assessment Within Functional Limits Comments Strength Comments 4/5 OT- Coordination Assessment Upper Extremity Finger to Nose Test Within Functional Limits Finger Tapping Test Within Functional Limits OT-Muscle Tone Assessment Muscle Tone WNL Yes OT Sensation Assessment Edema Edema Absent M9 OT- IP Assessment and Plan Start: 09/08/22 13:05 Freq: Status: Active Protocol: Document 09/08/22 13:05 CGR (Rec: 09/08/22 13:29 CGR [id number]) OT Summary Assessment and Plan Potential Rehabilitation Potential Good Analytic Complexity at Evaluation Moderate Summary OT Impairments Pain,Strength,Balance, Functional Mobility,Grooming, Dressing,Toileting,Bathing, Toilet Transfers,Shower Transfers,Activity Tolerance Progress Towards Goals Slow Progress due to Pain,Slow Progress due to Activity Tolerance Assessment Summary Pt presents as a moderate complexity evaluation s/p admit for L5-S1 TLIF. Pt is currently needing min to mod a for sit to stand and min a for mobility. Pt will benefit from continued therapy servcies. Pt is likely to progress quickly but at this time is most appropriate for SNF placement. Recommend continued therapy services. Goals Self-Feeding Goal Independent Grooming Goal Independent Dressing Goal Independent Toileting Goal Independent Bathing Goal Independent Toilet Transfer Goal Independent Days to Meet Goals 5 Frequency of Treatment Frequency Of Treatment Once a Day Treatment Plan OT Treatment Plan ADL Training,Functional Mobility,Patient/Family Education,Discharge Planning Other Treatment Recommendations and Next ADLs standing, endurance, LB Treatment Focus dressing Discharge Recommendations OT Discharge Recommendations SNF Rehab Transportation Needs at Discharge Wheelchair/Cabulance
--- NOTE | 2022-09-08 12:47 | PM.PN.1 ---
Subjective Subjective Interval history: Some left sided foot tingling today, still with back pain, improved mildly today but worse at night. Exam Vital Signs (past 8 hours): - 09/08/22 08:05 09/08/22 07:00 Temperature 97.4 F L Pulse Rate 85 Respiratory Rate 17 Blood Pressure 130/69 Pulse Oximetry 94 Oxygen Delivery Method Room Air Oxygen Flow Rate 0 Oxygen Delivery Method Room Air Oxygen Flow Rate 0 Narrative Exam Narrative: General: Alert oriented and cooperative. Appears to be in pain. HEENT: Head is normocephalic. Trachea is midline. No palpable neck nodes. Neck is supple. Cardiovascular: Heart sounds S1 and S2 with no extra sounds or murmurs. Noticed tachycardia. Respiratory: Adequate air entry throughout the lung rivas no wheezes or crackles. Normal expansion of the chest. Gastrointestinal: Abdomen is soft. Nontender. Skin: No new lesions or rashes. Psych: Normal mood and affect. Objective Labs 09/08/22 04:55 09/08/22 04:55 Labs: Laboratory Results - last 24 hr 09/08/22 09/08/22 04:55 04:55 WBC 17.9 H RBC 4.80 Hgb 13.6 Hct 40.5 MCV 84.4 MCH 28.3 MCHC 33.5 RDW 14.2 Plt Count 264 Neut % (Auto) 92.2 H Lymph % (Auto) 3.[address] [place] % (Auto) 4.5 Eos % (Auto) 0.0 L Baso % (Auto) 0.1 Neut # (Auto) 23375 H Lymph # (Auto) [address] [place] # (Auto) 800 Eos # (Auto) 0 Baso # (Auto) 0 Sodium 130 L Potassium 4.8 Chloride 103 Carbon Dioxide 24 BUN 41 H Creatinine 0.88 Estimated GFR > 60 BUN/Creatinine Ratio 46.6 H Glucose 366 H Calcium 8.7 PFSH Medical History Actinic keratosis Breast cancer screening Breast pain, left Chronic lower back pain Essential hypertension Hypercholesterolemia MCL sprain of right knee Seborrheic keratoses Skin tags, multiple acquired Type 2 diabetes mellitus Social History household members: significant other Smoking Status: Former smoker Assessment & Plan Assessment & Plan narrative: 1. Acute herniated disc of L5-S1 causing significant lumbar pain. -s/p surgery with orthopedics on 12/08 -continue pain control, increase to scheduled tylenol, start gabapentin, and continue prn oxycodone. 2. Concern with previously UTI that was not treated. -Repeat UA negative. 3. Type 2 diabetes. -A1c 11.7% -start lantus 15u nightly then increased to 20 units, and med dose SSI -may need continued adjustments. 4. Hyperlipidemia history. -LDL significantly elevated at 220 -started lipitor 20mg nightly 5. Hypertension. -Maintain patient's regular medication and follow. COVID tests: Negative. Code status: Full code DVT prophylaxis: Enoxaparin 40 mg subQ daily, held for surg PPI prophylaxis: Pantoprazole 40 mg daily Surrogate decision maker: Kamran Joya Dispo: Pending recover from back surgery on 09/07, may need SNF depending on PT/OT evaluations. COVID-19 COVID-19 status: Negative Quality VTE Deep Vein Thrombosis/Pulmonary Embolism Present on Admission: No
[2022-09-08] MEDS: GABAPENTIN 300 MG CAPSULE PO (14:10)
--- NOTE | 2022-09-08 14:57 | PT.IPTN ---
Current Diagnoses Other intervertebral disc degeneration, lumbar region (09/07/22) Surgery Performed Operation Date: 09/07/22 16:15 Actual Procedures p L5-S1 TLIF - Codey Mayo MD Physical Therapy Treatment Note M2 PT-IP Current Condition Start: 09/06/22 13:35 Freq: NEEDED Status: Active Protocol: Document 09/08/22 11:30 AB (Rec: 09/08/22 13:13 AB [email or web address]) Physical Therapy Current Condition Current Condition Evaluation Date 09/08/22 Treatment Diagnosis s/p L5S1 TLIF; difficulty in walking Onset Date 09/05/22 M3 PT-IP Subjective Start: 09/06/22 13:35 Freq: NEEDED Status: Active Protocol: Document 09/08/22 14:57 AB (Rec: 09/08/22 15:24 AB [email or web address]) Subjective Physical Therapy Visit Type Type Treatment Note Visit Start Time 14:57 Visit Stop Time 15:15 Total Visit Minutes 18 Number of PITTING MACHINE OPERATOR Visits 0 Physical Therapy Visit Comments Patient Comments initially refused PT due to c/ o pain: 10/31 but checked back on pt after ~ 30 min and agreed to do PT Therapy Pain Assessment Pain When Pain Assessed At Rest Location Low Back Scale Used not too bad per pt Pain Management Techniques Distraction,Modification of Treatment,Re-positioning, Timing of Activity with Medications M4 PT-IP Mobility and Gait Start: 09/06/22 13:35 Freq: NEEDED Status: Active Protocol: Document 09/08/22 14:57 AB (Rec: 09/08/22 15:24 AB [email or web address]) PT-Bed Mobility Assessment Rolling Level of Assist Moderate Assistance Supine to Sit Supine to Sit Maximum Assistance,1 Person Assistance,Bedrails Sit to Supine Sit to Supine Moderate Assistance,1 Person Assistance,Bedrails PT-Transfer Assessment Sit to and From Stand Sit to and from Stand Contact Guard Assistance, Minimal Assistance,1 Person Assistance,Use of Upper Extremities Equipment Transfer Assistive Device Gait Belt,Front Wheeled Walker Orthotic/Prosthetic Devices or Brace: No Transfers Transfer Destination Toilet Transfer Technique ambulated Transfer Ability Level of Assist Contact Guard Assistance, Minimal Assistance,1 Person Assistance,Use of Upper Extremities Comments Mobility Comments completed supine to sit log roll mod to max A and max cues . pt used bed rail sto assist . completed sit to stand min A and cues and ambulated to the toilet using FWW CGA to min A . required assist with brief management. completed sit to stand from the toilet CGA using grab bar. pt agreed to ambulate more in room and completed ~ 45 ft using FWW CGA to min A. pt requested to go back to bed. completed sit to supine mod A and max cues. positioned pt in bed. Left pt with NAC to put purewick back on pt. Gait Assessment Gait Gait Assistance Required: Contact Guard Assist,Minimum Assistance Distance (Feet) 45 Able to Maintain Weight Bearing Status Yes During Gait Assistive Devices Assistive Device Gait Belt,Front Wheeled Walker Orthotic/Prosthetic Devices or Brace: No Gait Deviations General Gait Pattern Decreased Stride Length, Decreased Feet Clearance Factors Limiting Gait Function Factors Limiting Gait Function Decreased Activity Tolerance, Decreased Sensation,Decreased Strength,Limited Range of Motion,Pain,Poor Balance,Poor Safety Awareness M5 PT-IP Objective Assessments Start: 09/06/22 13:35 Freq: NEEDED Status: Active Protocol: Document 09/08/22 11:30 AB (Rec: 09/08/22 13:13 [email or web address] Orientation Orientation/Cognition Level of Alertness Alert Orientation Name,Place,Situation Language Function Ability No Deficits Noted Safety Awareness Decreased Safety Awareness Memory Description Short Term Impaired Gross Range of Motion Lower Extremity ROM Assessment Within Functional Limits Strength Lower Extremity Strength Assessment Left Impaired Hip 3+/5 Knee 4-/5 Sensation Assessment Comments Sensation Comments c/o slight tingling on calves and feet Muscle Tone Muscle Tone WNL Yes M6 PT-IP Treatment Start: 09/06/22 13:35 Freq: NEEDED Status: Active Protocol: Document 09/08/22 14:57 AB (Rec: 09/08/22 15:24 AB [email or web address]) Physical Therapy Treatment Education Education Provided Precautions,Safety M7 PT-IP Assessment and Plan Start: 09/06/22 13:35 Freq: NEEDED Status: Active Protocol: Document 09/08/22 14:57 AB (Rec: 09/08/22 15:24 AB [email or web address]) PT Summary Assessment and Plan Potential Rehabilitation Potential Fair Summary Impairments Pain,ROM,Strength,Balance, Coordination,Sensation,Tone, Cognition,Bed Mobility, Transfers,Gait,Activity Tolerance Progress Towards Goals Slow Progress due to Pain,Slow Progress due to Activity Tolerance Assessment Summary pt progressing slowly and requiring CGA to min A with ambulation using FWW ~ 45 ft, requires mod to max A with bed mobility with max cues. pt will need SNF rehab to improve strength and mobility. Goals Bed Mobility Goal Standby Assistance Transfer Goal Standby Assistance,Front Wheeled Walker Gait Goal Standby Assistance,Front Wheel Walker Gait Distance 150 Days to Meet Goals 10 Frequency of Treatment Frequency Of Treatment Twice a Day Treatment Plan Physical Therapy Treatment Plan Bed Mobility Training,Transfer Training,Gait Training, Therapeutic Exercise,Balance Retraining,Post Op Education, Discharge Planning,Hot or Cold Pack,Neuromuscular Re-ed, Coordination Retraining,Manual Therapy Precautions Lumbar Precautions Log Roll,No Twisting,Limit Bending,Lifting Restriction of 10 lbs,Gait Belt above Incisional Area Recommendations To Nursing Amount of Assist Needed 1 Person Assist Discharge Recommendations PT Discharge Recommendations SNF Rehab Transportation Needs at Discharge Private Vehicle,Wheelchair/ Cabulance
[2022-09-08 20:45] VITALS: BP 164/84; PULSE 97; RESP 17; TEMP 36.7; O2SAT 96
[2022-09-08] MEDS: ATORVASTATIN 20 MG TABLET PO (20:51)
[2022-09-08] MEDS: GABAPENTIN 600 MG TABLET PO (20:51)
[2022-09-08] MEDS: SENNOSIDES 8.6 MG TABLET 17.2 MG PO (21:56)
[2022-09-08 23:38] VITALS: BP 146/80; PULSE 93; RESP 18; TEMP 36.7; O2SAT 92
[2022-09-09 03:34] VITALS: BP 140/79; PULSE 87; RESP 16; TEMP 35.7; O2SAT 92
[2022-09-09] MEDS: ACETAMINOPHEN 325 MG TABLET 650 MG PO (06:00)
[2022-09-09 06:04] LABS: Add Manual Diff / Slide Review NO; Basophils Absolute Auto 0 /uL (0-100); Basophils Percent Auto 0.1 % (0-2); Eosinophils Absolute Auto 0 /uL (0-450); Eosinophils Percent Auto 0.3 % (2-4); Hemoglobin 13.4 g/dL (12.0-16.0); Lymphocytes Absolute Auto 2100 /uL (1100-4500); Lymphocytes Percent Auto 19.1 % (25-40); Mean Corpuscular HGB Conc 34.4 % (30-36); Mean Corpuscular Hemoglobin 28.8 PG (26-34); Mean Corpuscular Volume 83.7 fL (80-100); Monocytes Absolute Auto 800 /uL (0-900); Monocytes Percent Auto 7.3 % (3-14); Neutrophils Absolute Auto 7900 /uL (1500-7000); Neutrophils Percent Auto 73.2 % (50-75); Platelet Count 214 X10^3/uL (150-400); Red Blood Cell Count 4.66 X10^6/uL (4.0-5.2); Red Cell Distribution Width 13.7 % (11.6-14.8); White Blood Cell Count 10.8 X10^3/uL (4.5-11.0)
[2022-09-09] MEDS: LACTATED RINGERS 1,000 ML 125 ML IV (06:05)
[2022-09-09 06:15] LABS: Blood Urea Nitrogen 39 mg/dL (7-17); Carbon Dioxide 26 mmol/L (22-32); Chloride 103 mmol/L (98-107); Estimated Glomerular Filt Rate 44 mL/min (>60); Glucose 242 mg/dL (80-110); HEMOLYSIS < 15 (0-50); Sodium 132 mmol/L (137-145)
--- NOTE | 2022-09-09 08:16 | P.PN_ITS ---
Subjective Subjective Interval history: Patient is resting comfortably in bed this morning. She states her pain is well controlled with medication. She still complains of mild tingling to the left ankle, no other numbness or tingling in the lower extremities. She is looking forward to discharging to a rehab facility today if possible. Denies chest pain, shortness of breath, fever, chills, nausea, vomiting. Exam Vital Signs (past 8 hours): - 09/09/22 03:34 Temperature 96.2 F L Pulse Rate 87 Respiratory Rate 16 Blood Pressure 140/79 Pulse Oximetry 92 Oxygen Flow Rate 0 Oxygen Delivery Method Room Air Oxygen Flow Rate 0 Narrative Exam Narrative: Pleasant 72-year-old female. Awake, alert, and oriented. Intraoperative dressing clean, dry, and intact. Strength and sensation grossly intact to bilateral lower extremities. Bilateral calves soft, compressible, nontender with no palpable cords or masses. Objective Labs 09/09/22 05:30 09/09/22 05:30 Labs: Laboratory Results - last 24 hr 09/09/22 09/09/22 05:30 05:30 WBC 10.8 RBC 4.66 Hgb 13.4 Hct 39.0 MCV 83.7 MCH 28.8 MCHC 34.4 RDW 13.7 Plt Count 214 Neut % (Auto) 73.2 Lymph % (Auto) 19.1 L [place] % (Auto) 7.3 Eos % (Auto) 0.3 L Baso % (Auto) 0.1 Neut # (Auto) 7900 H Lymph # (Auto) 2100 [place] # (Auto) 800 Eos # (Auto) 0 Baso # (Auto) 0 Sodium 132 L Potassium 4.0 Chloride 103 Carbon Dioxide 26 BUN 39 H Creatinine 1.30 H Estimated GFR 44 L BUN/Creatinine Ratio 30.0 H Glucose 242 H D Calcium 9.0 PFSH Medical History Actinic keratosis Breast cancer screening Breast pain, left Chronic lower back pain Essential hypertension Hypercholesterolemia MCL sprain of right knee Seborrheic keratoses Skin tags, multiple acquired Type 2 diabetes mellitus Social History household members: significant other Smoking Status: Former smoker Assessment & Plan Post-op Postoperative Procedures: Procedures Operation Date: 09/07/22 16:15 Actual Procedure Side Surgeon p L5-S1 TLIF Codey Mayo MD Postoperative day: 2 Postoperative status: doing well Postoperative status narrative: Patient is progressing as expected after 1 level TLIF 2 days ago. Pain is well controlled with medication. Postoperative plan: routine post-op care Postoperative plan narrative: Patient is expected to discharge to [facility] facility today to continue rehabilitation. Continue multimodal pain regimen as outpatient. She will make a 2 week postoperative follow-up appointment with Orthopedics. Dressing and soham will be removed that time. Quality VTE Deep Vein Thrombosis/Pulmonary Embolism Present on Admission: No
[2022-09-09 08:31] VITALS: BP 128/73; PULSE 84; RESP 16; TEMP 36.4; O2SAT 92
--- NOTE | 2022-09-09 08:31 | CM.DPC ---
DCP Discharge SNF Per MD and Ortho, pt medically stable to d/c to SNF today and no identified barriers to discharge. Cesilia from [facility] called and confirmed she just received pt's insurance auth for SNF and can provide transport today around 1200. SW updated MD and Ortho and RN kindly getting updated COVID swab and HORSE RACETRACK MANAGER alerted and will work on d/c packet. VAZQUEZ Mendoza kindly gathering d/c packet to fax to [facility] when available. Plan: Patient to d/c to [facility] today via facility van around 1200 prior to safe d/c home with Sig Other. Lula Cardenas, CENTRAL SUPPLY SUPERVISOR
[2022-09-09] MEDS: MAGNESIUM HYDROXIDE 30 ML UDC PO (09:09)
[2022-09-09] MEDS: polyethylene glycoL 3350 17 GM POWD.PACK PO (09:09)
[2022-09-09] MEDS: DOCUSATE 100 MG CAPSULE PO (09:09)
[2022-09-09] MEDS: METFORMIN HCL 500 MG TABLET PO (09:09)
[2022-09-09] MEDS: GABAPENTIN 300 MG CAPSULE PO (09:11)
[2022-09-09 09:35] LABS: COVID19 -Nasal RAPID Negative (Negative)
--- NOTE | 2022-09-09 09:50 | PT.IPTN ---
Current Diagnoses Other intervertebral disc degeneration, lumbar region (09/07/22) Surgery Performed Operation Date: 09/07/22 16:15 Actual Procedures p L5-S1 TLIF - Codey Mayo MD Physical Therapy Treatment Note M2 PT-IP Current Condition Start: 09/06/22 13:35 Freq: NEEDED Status: Active Protocol: Document 09/08/22 11:30 AB (Rec: 09/08/22 13:13 AB [id number]) Physical Therapy Current Condition Current Condition Evaluation Date 09/08/22 Treatment Diagnosis s/p L5S1 TLIF; difficulty in walking Onset Date 09/05/22 M3 PT-IP Subjective Start: 09/06/22 13:35 Freq: NEEDED Status: Active Protocol: Document 09/09/22 10:18 TS (Rec: 09/09/22 10:40 TS [id number]) Subjective Physical Therapy Visit Type Type Treatment Note Visit Start Time 09:50 Visit Stop Time 10:14 Total Visit Minutes 24 Number of RESIDENTIAL SPECIALIST Visits 1 Physical Therapy Visit Comments Patient Comments Pt found resting in bed, agreeable to PT. Therapy Pain Assessment Pain When Pain Assessed At Rest Pain Present Pain Present Pain Reported M4 PT-IP Mobility and Gait Start: 09/06/22 13:35 Freq: NEEDED Status: Active Protocol: Document 09/09/22 10:18 TS (Rec: 09/09/22 10:40 TS [id number]) PT-Bed Mobility Assessment Rolling Level of Assist Contact Guard Assistance Supine to Sit Supine to Sit Minimal Assistance Sit to Supine Sit to Supine Minimal Assistance,1 Person Assistance Scooting Scooting to Edge of Bed Contact Guard Assistance Scooting Up and Down in Bed Standby Assistance PT-Transfer Assessment Sit to and From Stand Sit to and from Stand Contact Guard Assistance,1 Person Assistance,Use of Upper Extremities Equipment Transfer Assistive Device Gait Belt,Front Wheeled Walker Orthotic/Prosthetic Devices or Brace: No Comments Mobility Comments PT found resting in bed, agreeable to PT. Prior to session pt recalled 1/3 spinal precautions (bending). Logroll CGA, provided verbal/ tactile cues for sequencing. Supine to sit Hola for uprighting trunk, provided cues for handplacement and LE sequencing. Pt scootd to EOB SBA with BUE support. Sit to stand x1 w/FWW CGA, some retroleaning, bracing LEs against bed for support. Pt ambulated in room/hallway ~200 ' SBA/CGA step to gait, provided cue for inside FWW, x1 LOB able to correct with FWW. Sit to supine Hola for LEs, provided VC for logroll. Pt was left in bed with call light nearby, Rn notified. Gait Assessment Gait Gait Assistance Required: Standby Assistance,Contact Guard Assist Distance (Feet) 150 Able to Maintain Weight Bearing Status Yes During Gait Assistive Devices Assistive Device Gait Belt,Front Wheeled Walker Orthotic/Prosthetic Devices or Brace: No Gait Deviations General Gait Pattern Decreased Stride Length, Decreased Feet Clearance Factors Limiting Gait Function Factors Limiting Gait Function Decreased Activity Tolerance, Decreased Sensation,Decreased Strength,Limited Range of Motion,Pain,Poor Balance,Poor Safety Awareness Comments Gait Comments See mobility comments. PT-Balance Assessment Sitting Balance and Reactions Static Sitting Balance Ability Good Dynamic Sitting Balance Ability Fair Standing Balance and Reactions Static Standing Balance Ability Good Dynamic Standing Balance Ability Fair Device Used FWW M5 PT-IP Objective Assessments Start: 09/06/22 13:35 Freq: NEEDED Status: Active Protocol: Document 09/08/22 11:30 AB (Rec: 09/08/22 13:13 AB [id number]) Orientation Orientation/Cognition Level of Alertness Alert Orientation Name,Place,Situation Language Function Ability No Deficits Noted Safety Awareness Decreased Safety Awareness Memory Description Short Term Impaired Gross Range of Motion Lower Extremity ROM Assessment Within Functional Limits Strength Lower Extremity Strength Assessment Left Impaired Hip 3+/5 Knee 4-/5 Sensation Assessment Comments Sensation Comments c/o slight tingling on calves and feet Muscle Tone Muscle Tone WNL Yes M6 PT-IP Treatment Start: 09/06/22 13:35 Freq: NEEDED Status: Active Protocol: Document 09/09/22 10:18 TS (Rec: 09/09/22 10:40 [id number]) Physical Therapy Treatment Education Education Provided Precautions,Safety M7 PT-IP Assessment and Plan Start: 09/06/22 13:35 Freq: NEEDED Status: Active Protocol: Document 09/09/22 10:18 TS (Rec: 09/09/22 10:40 TS [id number]) PT Summary Assessment and Plan Potential Rehabilitation Potential Good Summary Impairments Pain,ROM,Strength,Balance, Coordination,Sensation,Tone, Cognition,Bed Mobility, Transfers,Gait,Activity Tolerance Progress Towards Goals Progressing Toward Goals Assessment Summary Pt is progressing well with her mobility this session. Prior to session pt recalled 1 /3 spinal precautions (bending ), handout provided at [facility]. She demonstrated good carryover of logroll, required some cueing for sequencing. She progressed her sit to stand to CGA and ambulation to CGA/SBA ~150'. During gait x1 buckling of LEs, corrected inside FWW. PT continues to recommend SNF to progress gait , activity tolerance and pt education on spinal precautions/logroll. Goals Bed Mobility Goal Standby Assistance Transfer Goal Standby Assistance,Front Wheeled Walker Gait Goal Standby Assistance,Front Wheel Walker Gait Distance 150 Days to Meet Goals 10 Frequency of Treatment Frequency Of Treatment Twice a Day Treatment Plan Physical Therapy Treatment Plan Bed Mobility Training,Transfer Training,Gait Training, Therapeutic Exercise,Balance Retraining,Post Op Education, Discharge Planning,Hot or Cold Pack,Neuromuscular Re-ed, Coordination Retraining,Manual Therapy Precautions Lumbar Precautions Log Roll,No Twisting,Limit Bending,Lifting Restriction of 10 lbs,Gait Belt above Incisional Area Recommendations To Nursing Amount of Assist Needed 1 Person Assist Discharge Recommendations PT Discharge Recommendations SNF Rehab Transportation Needs at Discharge Private Vehicle,Wheelchair/ Cabulance
[2022-09-09] MEDS: OXYCODONE IR 10 MG TABLET PO (10:25)
--- NOTE | 2022-09-09 11:16 | P.DS_ITS ---
History of Present Illness History of Present Illness Date Patient Seen: 09/09/22 Time Patient Seen: 11:16 Chief complaint: Back Pain left leg pain Narrative: Per admitting provider, Patient is a 72-year-old female.? This has been her 4th visit in the past 7-10 days to the ER.? She is been here each time for lower back discomfort.? She is had multiple workups to include x-rays and CT scans and an MRI.? She does have disc disease in the left side that is causing severe stenosis.? She is having pain radiating down her left leg.? When she was here couple days ago she was diagnosed with a urinary tract infection and it was thought to be an incidental finding.? There was low suspicion for pyelonephritis.? Last time in the ER, she was not been able to take her medications because of vomiting.? She was dehydrated.? Was tachycardic.? Improved after medications and discharged home.? Since that time she is not been able to take any of her steroids.? She has taken limited amounts of her other medicines as well because of vomiting.? Continues to be in discomfort.? Is drinking fluids but has not been eating.? Has not been able to get up out of the bed were stand or walk because of discomfort.? She is unsure if she is even taking any antibiotics.? She stated that she did fill prescriptions that were given to her during her last visit but she does not remember what they were.? No bowel or bladder dysfunction no fevers. No chills. No shortness of breath wheezing or cough. No abdominal pain constipation or diarrhea. Able to move all extremities volitionally. Pain mostly confined to the low back with radiation to the left leg. Previous ER visit urine culture was mixed tyrell in no actual infection. Patient has a history of diabetes, hyperlipidemia and hypertension. Discharge Providers Provider Date of admission: 09/07/22 12:40 Discharge Date: 09/09/22 Primary care physician: Pawan Floyd DO Consults: 09/05/22 16:25 Consult to Physical Therapy Evaluate & Treat Comment: Physician Instructions: Evaluate and Treat 09/06/22 08:37 Consult to Occupational Therapy Evaluate & Treat Comment: Physician Instructions: Evaluate and treat 09/06/22 16:33 Consult to Orthopedic Surgery Routine Comment: Consulting Provider: Codey Mayo Reason for consultation: herniated disc 09/07/22 19:55 Consult to Occupational Therapy Evaluate & Treat Comment: Physician Instructions: Evaluate and treat Consult to Physical Therapy Evaluate & Treat Comment: Physician Instructions: Evaluate and Treat Discharge provider: Nimesh Weiner DO Summary Hospital Course Discharge Diagnosis: 1. Acute herniated disc of L5-S1 causing significant lumbar pain.? 2. Type 2 diabetes.? 3. Hyperlipidemia 4. Hypertension.? Hospital Course: This is a 72 year old female who presented with continued low back discomfort due to an acute herniated disc of L5-S1. She was evaluated by orthopedic surgery and underwent TLIF on 09/07/22. Post operative course was uncomplicated, therapies recommended ongoing therapy at residential. Patient's pain improved with scheduled tylenol, gabapentin, and as needed oxycodone. A1c was noted to be 11.7%, and while no changes to home diabetes medications are recommended currently at discharge, it is suggested she continue to have her sugar monitored and may need follow up with outpatient providers for continued adjustment in diabetes medications. Her LDL was also significantly elevated and started on atorvastatin at the time of discharge. She was transferred to residential as noted above to continue physical and occupational therapies after surgical interventions prior to return home. Time Spent with Patient Time spent: Greater than 30 minutes Exam Vital Signs (past 8 hours): - 09/09/22 03:34 09/09/22 08:31 Temperature 96.2 F L 97.5 F L Pulse Rate 87 84 Respiratory Rate 16 16 Blood Pressure 140/79 128/73 Pulse Oximetry 92 92 Oxygen Flow Rate 0 0 Oxygen Delivery Method Room Air Oxygen Flow Rate 0 Narrative Exam Narrative: General: Alert oriented and cooperative. Appears to be in pain. HEENT: Head is normocephalic. Trachea is midline. No palpable neck nodes. Neck is supple. Cardiovascular: Heart sounds S1 and S2 with no extra sounds or murmurs. Noticed tachycardia. Respiratory: Adequate air entry throughout the lung rivas no wheezes or crackles. Normal expansion of the chest. Gastrointestinal: Abdomen is soft. Nontender. Skin: No new lesions or rashes. Psych: Normal mood and affect. Objective Labs 09/09/22 05:30 09/09/22 05:30 Labs: Laboratory Results - last 24 hr 09/09/22 09/09/22 09/09/22 05:30 05:30 08:55 WBC 10.8 RBC 4.66 Hgb 13.4 Hct 39.0 MCV 83.7 MCH 28.8 MCHC 34.4 RDW 13.7 Plt Count 214 Neut % (Auto) 73.2 Lymph % (Auto) 19.1 L Jennings % (Auto) 7.3 Eos % (Auto) 0.3 L Baso % (Auto) 0.1 Neut # (Auto) 7900 H Lymph # (Auto) 2100 Jennings # (Auto) 800 Eos # (Auto) 0 Baso # (Auto) 0 Sodium 132 L Potassium 4.0 Chloride 103 Carbon Dioxide 26 BUN 39 H Creatinine 1.30 H Estimated GFR 44 L BUN/Creatinine Ratio 30.0 H Glucose 242 H D Calcium 9.0 SARS-CoV-2 (PCR) Negative PFSH Medical History Actinic keratosis Breast cancer screening Breast pain, left Chronic lower back pain Essential hypertension Hypercholesterolemia MCL sprain of right knee Seborrheic keratoses Skin tags, multiple acquired Type 2 diabetes mellitus Social History household members: significant other Smoking Status: Former smoker Discharge Plan Discharge Plan Patient Disposition: SNF Transfer to: [facility], [facility] Provider Discharge Comment: 72 F admitted with weakness, underwent spinal surgery with orthopedics. Transfer to SNF for continued PT/OT. Discharge orders & Medications Prescriptions: New hydroxyzine pamoate 25 mg Capsule 25 mg PO Q4HR PRN (Reason: Nausea And Vomiting) Qty: 40 0RF oxycodone 5 mg tablet 5 mg PO Q4-6H PRN (Reason: pain) Qty: 40 0RF acetaminophen 325 mg Tablet 650 mg PO Q8H Qty: 120 0RF atorvastatin 20 mg Tablet 20 mg PO BEDTIME 30 Days Qty: 30 0RF docusate sodium 100 mg Capsule 100 mg PO BID Qty: 60 0RF gabapentin [Neurontin] 600 mg Tablet 600 mg PO BEDTIME 30 Days Qty: 30 0RF polyethylene glycol 3350 17 gram Powder In Packet 17 g PO DAILY PRN (Reason: Constipation) Qty: 30 0RF gabapentin 300 mg Capsule 300 mg PO 0900,1500 30 Days Qty: 60 0RF Continued (DME) Accu-Chek Makeda Plus test strp Strip See Rx Instructions .ROUTE .COMPLEX Qty: 100 2RF Dose Instruction: FOR DIABETES TYPE 2; USE TO TEST BLOOD GLUCOSE TWICE DAILY. Rx Instructions: FOR DIABETES TYPE 2; USE TO TEST BLOOD GLUCOSE TWICE DAILY. (DME) blood-glucose meter Kit See Rx Instructions .ROUTE .MEDSUPPLY Qty: 1 0RF Rx Instructions: Use to check blood sugars twice daily- Accu Check Meter metformin 500 mg tablet 1,000 mg PO BIDWMEAL Qty: 360 3RF (DME) lancets [BD Ultra Fine Lancets] 33 gauge misc See Rx Instructions .ROUTE .MEDSUPPLY Qty: 100 1RF Rx Instructions: USE TO TEST BLOOD GLUCOSE TWICE DAILY (DME) Parking Permit... See Rx Instructions .Route .MEDSUPPLY Qty: 1 0RF Rx Instructions: Parking permit for difficulty walking lisinopril 20 mg tablet 20 mg PO DAILY Patient Comments: TAKE ONE TABLET BY MOUTH ONE TIME DAILY Jardiance 25 mg tablet 25 mg PO DAILY Patient Comments: TAKE ONE TABLET BY MOUTH ONE TIME DAILY Follow up/Referrals: Codey Mayo MD [Physician] - 2 Weeks Pawan Floyd DO [Primary Care Provider] - Diet/Activity/Treatments Diet: Carb-consistent/Diabetic Liquid consistency: Normal/Thin Food texture: Regular Activity: Up and walking as able. No deep bending or twisting, no lifting over 10 pounds. Skin/Wound/Dressing Care Report to your healthcare provider any signs of infection, such as:: chills, fever, night sweats, unusual drainage and unusual redness Dressing: Keep dressing clean, dry, and intact until your 2 week follow up with orthopedics. If the dressing becomes wet, please have the rehab facility change the dressing or call our office for a dressing change. [facility] Reason for rehabilitation: Post-operative therapy Rehab type: Physical therapy and Occupational therapy Visit Report/Discharge Packet Instructions: How to Prevent Falls, DI for Transforaminal Lumbar Interbody Fusion Stand Alone Forms: Patient Portal/API, Surgery Discharge Discharge Data Primary Care Provider: Pawan Floyd Discharges patient from system. Discharge Date/Time: 09/09/22 12:16 Quality VTE Deep Vein Thrombosis/Pulmonary Embolism Present on Admission: No
--- NOTE | 2022-09-09 11:59 | PC.NURSE ---
Day shift: Pt left unit at approx 1200, Transported to SNF in [place] by transport person from that facility via . They have the SNF packet. Pt has all personal belongings. Pt's Spouse has Pt's home meds from this pharmacy. Dressing remains CDI. MIld edema LLE/ankle/foot area. VS WNL. RA 97%.
--- NOTE | 2022-09-09 12:16 | PC.NURSE ---
Day shift: Report given to Kaitlin at approx 1210.
== END 2022-09-09 12:16 | DRG 455 ==
LOC: ED 11:33 → AC 11:58
PROVIDERS: Internal Medicine; Orthopaedic Surgery Orthopaedic Surgery of the Spine; Student in an Organized Health Care Education/Training Program; Admitting Provider Neuromusculoskeletal Medicine, Sports Medicine; Emergency Provider Emergency Medicine; Family Provider Family Medicine; PCP Family Medicine; Referring Provider Emergency Medicine; Visit Provider Neuromusculoskeletal Medicine, Sports Medicine
PROC: 0SG30AJ Fusion of Lumbosacral Joint with Interbody Fusion Device, Posterior Approach, Anterior Column, Open Approach (ICD-10-PCS; principal; 2022-09-07 16:15)
DX: M51.27 Other intervertebral disc displacement, lumbosacral region (principal); E11.9 Type 2 diabetes mellitus without complications; I10 Essential (primary) hypertension; E78.5 Hyperlipidemia, unspecified; M48.07 Spinal stenosis, lumbosacral region; M54.17 Radiculopathy, lumbosacral region; Z79.84 Long term (current) use of oral hypoglycemic drugs; Z87.891 Personal history of nicotine dependence; Z20.822 Contact with and (suspected) exposure to COVID-19
CPT/HCPCS: 36415; 72100; 76000; 80048; 80061; 81001; 82962; 85025; 87635; 96374; 96375; 97116; 97162; 97166; 97530; 99284; C9803; G0378; C1713; C9290; J0171; J0330; J0690; J1100; J1170; J1815; J1885; J2250; J2405; J2704; J2930; J3010

== ENCOUNTER → 2022-11-11 09:05 | Outpatient (CLI) | payer MEDICARE, MEDICAID, SELFPAY ==
[2022-11-12 08:47] LABS: x Labcorp Estim. Avg Glu (eAG) 192 mg/dL (.); x Labcorp Hemoglobin A1c 8.3 % (4.8-5.6)
== END ==
PROVIDERS: Family Provider Family Medicine; PCP Family Medicine; Referring Provider Family Medicine; Visit Provider Family Medicine
DX: E11.9 Type 2 diabetes mellitus without complications (principal)
CPT/HCPCS: 36415; 83036

== ENCOUNTER → 2022-11-14 10:25 | Outpatient (CLI) | payer MEDICARE, MEDICAID, SELFPAY | PROVIDERS: Family Provider Family Medicine; PCP Family Medicine; Visit Provider Family Medicine | DX: N39.0 Urinary tract infection, site not specified (principal) | CPT/HCPCS: 87077; 87086; 87186 ==